=== PATIENT | male | born 1955 | race Caucasian/White ===

== ENCOUNTER 2017-04-30 08:06 | Emergency (ER) | payer OTHER ==
[~2017-04-30] VITALS: Ht 175.3 cm; Wt 84.2 kg
[~2017-04-30 08:06] MED LIST: FLX/5 PO
[2017-04-30 08:10] VITALS: TEMP 37.1; Ht 175.3 cm; Wt 84.2 kg
[2017-04-30] MEDS ORDERED: CIPROFLOXACIN HCL 0.3% OP SOLN 2.5 ML BTL OP ONE (08:45)
[2017-04-30] MEDS ORDERED: KETOROLAC TROMETHAMINE 60 MG/2 ML VIAL IM STA (09:15)
[2017-04-30] MEDS ORDERED: AMOXICILLIN 250 MG CAP PO STA (09:15)
[2017-04-30] MEDS ORDERED: HYDR-5688 PO (09:19)
[2017-04-30] MEDS ORDERED: AMOX500C3 PO (09:19)
--- NOTE | 2017-04-30 09:22 | EMERGENCY ROOM VISIT NOTE ---
ED Visit Note First contact with patient: 08:28 CHIEF COMPLAINT: Right ear pain times one day HISTORY OF PRESENT ILLNESS: Patient is a 62-year-old white male who presents the emergency department for evaluation of right ear pain. He states his symptoms started yesterday, but got much worse overnight. He notes pain in and around the right ear, states that he is unable to hear out of it. Pain is radiating towards his caodaism and to his jaw. It is worse when he talks. He denies any drainage or discharge from the area. He rates his pain a 7/10. He did not take any medication, nor perform any interventions for his ear pain. He reports an ear infection about a year ago. He has no symptoms in the left ear. He has not been ill with any cold or upper respiratory symptoms recently. REVIEW OF SYSTEMS: Review of systems as per HPI. All other systems reviewed were negative. At least 6 systems reviewed. PMH: Electronic medical records are reviewed and summarized as above/below. See Problem List. SOCIAL HISTORY: Patient lives at home. Smoker. PHYSICAL EXAM: Vital Signs: Reviewed Nurse's notes. MENTAL STATUS: Patient is a 62-year-old male who is awake and alert and weeping in pain , seated on the gurney. HEAD: Atraumatic, without temporal or scalp tenderness. EYES: PERRL, EOMI, no discharge or injection. EARS: Examination of the left ear so is the tympanic membranes to be intact, no effusion noted. Canal is patent. Examination of the right ear shows mild tragal fullness, and swelling of the external canal. Exam with a scope notes persistent swelling, and exudative discharge in the external canal. I am unable to fully visualize the tympanic membrane. He has tragal and auricular motion tenderness. The external ear structure otherwise is non-erythematous. There is no pain, swelling or erythema over the mastoid. NOSE: Nares patent, turbinates edematous and boggy with clear rhinorrhea. MOUTH: Mucous membranes moist, no lesions, tongue and gums appear normal. THROAT: No pharyngeal injection, exudates, or tonsillar hypertrophy. Airway is patent. NECK: No carotid bruits auscultated. Supple, nontender, no lymphadenopathy. No nuchal rigidity. HEART: Regular rate and rhythm without murmurs, ectopy, gallops, or rubs. LUNGS: Clear to auscultation and breath sounds equal, no wheezes, rales, or rhonchi. SKIN: Normal. NEUROLOGICAL: Sensory and motor functions grossly intact. Normal gait. ED course: The patient was seen and examined as above. He has marked swelling and erythema with drainage in the right external canal. It is difficult to exclude an otitis media as well. Ear wick was placed, and inflated using Cipro drops. The patient was given Toradol 60 mg IM for pain. He will be placed on amoxicillin for a presumed otitis media as well, but was advised to have the ear rechecked in 2-3 days by his PCP, at which point the ear wick can be removed , and hopefully the canal is less inflamed and the TM is able to fully visualized. He does not have any evidence for auricular cellulitis. I do not suspect mastoiditis. The patient was given a small prescription for [place]. Patient was reviewed in the [facility] Prescription Drug Monitoring Program, and there were no red flags noted. He receives regular controlled substances for his psychiatric conditions, has not received any narcotics recently. Medication reconciliation: I attest that I have personally reviewed the patient' s current medication list. Blood pressure screening: Patient was found to have a slightly elevated blood pressure due to circumstances. I do not believe that the patient requires hypertension monitoring. Problem List Medical Problems: (1) Anxiety Status: Chronic (2) Chest pain Status: Resolved (3) Esophageal Reflux Status: Chronic (4) Insomnia, Unspecified Status: Chronic (5) Neck pain Status: Resolved (6) Otitis media, purulent, acute, with spontaneous rupture of TM Status: Resolved (7) Restless Legs Syndrome Status: Chronic (8) Schizophrenia Nos-Unspec Status: Chronic (9) Syncope Status: Resolved Current/Historical Medications Scheduled Amoxicillin (Amoxil), 500 MG PO TID Scheduled PRN Hydrocodone/Acetaminophen 5MG/325MG ([place] 5MG/325MG), 1-2 TABLETS PO Q4 PRN for Pain Allergies Coded Allergies: No Known Allergies (Unverified , 04/30/17) Vital Signs Date Time Temp Pulse Resp B/P (MAP) Pulse Ox O2 Delivery O2 Flow Rate FiO2 04/30/17 09:59 70 20 158/103 96 04/30/17 09:28 102 163/110 98 04/30/17 08:10 37.1 104 20 164/109 97 Room Air Medications Administered Medications (Trade) Dose Ordered Sig/Artem Route Start Time Stop Time Status Last Admin Dose Admin Ciprofloxacin HCl (Ciprofloxacin 0.3% Op Soln) 2 drops Q4H ONCE OP 04/30/17 08:45 04/30/17 08:46 DC 04/30/17 08:45 2 DROPS Ketorolac Tromethamine (Toradol Inj) 60 mg NOW STAT IM 04/30/17 09:15 04/30/17 09:17 DC 04/30/17 09:26 60 MG Amoxicillin (Amoxil Cap) 500 mg NOW STAT PO 04/30/17 09:15 04/30/17 09:17 DC 04/30/17 09:24 500 MG Departure Information Impression Primary Impression: Right otitis externa Prescriptions Hydrocodone/Acetaminophen 5MG/325MG ([place] 5MG/325MG) Tab 1-2 TABLETS PO Q4 Y for Pain, #10 TAB For Initial Treatment Prov: Natalie Vera PA 04/30/17 Amoxicillin (AMOXIL) 500 Mg Cap 500 MG PO TID, #30 CAP Prov: Natalie Vera PA 04/30/17 Referrals Katrin Dickerson M.D. (PCP) Patient Instructions [facility] Additional Instructions Amoxicillin 500mg: Take 1 3 daily for 10 days. Any medication can cause an allergic reaction, stop the prescription immediately and return to the ER for rash, hives, breathing difficulties, or swelling. Ibuprofen(Motrin, Advil) may be used for fever or pain. Use 600mg every six hours as needed. Take with food. Avoid using more than 2400mg in a 24 hour period. Do not use 2400mg per day for more than three consecutive days without physician direction. Prolonged inappropriate use can lead to stomach upset or ulcers. (AND/OR) Acetaminophen(Tylenol) may be used for fever or pain. Use 1000mg every six hours as needed. Avoid using more than 3000mg in a 24 hour period. Hydrocodone/Acetaminophen ([place]) 5/325 mg: Take 1-2 pills every four hours for breakthrough pain. Avoid alcohol, operating machinery or dangerous equipment, working on ladders or roofs, DRIVING, or situations where being under the influence may be dangerous. It is recommended to use an [id number] stool softener such as Colace, 100mg twice daily while taking this medication to avoid constipation. Ciloxan drops: 4 drops in the right ear 3 times daily for 7 days. Read all the package inserts or medication information paperwork provided. If you have any questions or concerns call your primary provider, pharmacist or the ER for assistance. Encourage fluid intake. Rest is important, but light activity is o.k. Return with your child to the ER for lethargy, vomiting, difficulty breathing, abdominal pain, worsening of their condition, or for any parental concerns. Follow up with your primary care physician in 2-3 days for ear wick removal and for ear recheck.
[2017-04-30 09:59] VITALS: BP 158/103; PULSE 70; O2SAT 96
== END 2017-04-30 10:03 | disposition home or self-care (01) ==
LOC: C.EDB 08:07
DX: H60.91 Unspecified otitis externa, right ear (principal); F17.210 Nicotine dependence, cigarettes, uncomplicated; F41.9 Anxiety disorder, unspecified; K21.9 Gastro-esophageal reflux disease without esophagitis; G47.00 Insomnia, unspecified; G25.81 Restless legs syndrome; F20.9 Schizophrenia, unspecified

== ENCOUNTER 2017-05-02 11:27 | Emergency (ER) | payer OTHER ==
[~2017-05-02] VITALS: Ht 175.3 cm; Wt 83.6 kg
[~2017-05-02 11:27] MED LIST changes: +AMOX500C3 PO; -FLX/5 PO; +HYDR-5688 PO
[2017-05-02 11:31] VITALS: TEMP 37.2; Ht 175.3 cm; Wt 83.6 kg
[2017-05-02] MEDS ORDERED: HYDROCODONE/ACETAMOPHEN 5/325MG TAB PO STA (11:40)
--- NOTE | 2017-05-02 11:45 | EMERGENCY ROOM VISIT NOTE ---
History First contact with patient: 11:35 Chief Complaint: EAR PAIN Stated Complaint: EAR PAIN History of Present Illness The patient is a 62 year old male who presents to the Emergency Room via private vehicle with complaints of "right ear pain". The patient states that he was seen here just a few days ago and was diagnosed with otitis externa, and questionable otitis media although the canal was very inflamed. He had an ear wick placed, and has been using eardrops he was prescribed since that time. He' s also been using amoxicillin orally for any potential otitis media. He states that he was given 1 day of pain medication, and had been doing okay until this ran out and now he notes the pain is returned and it is very severe. He rates the pain as a 10/10, and notes pain all around the right ear, and behind the ear. He is unsure if there is any drainage that she notes ear wick is still within the ear. He denies any fevers or chills. Review of Systems A complete 6-point Review of Systems was discussed with the patient, with pertinent positives and negatives listed in the History of Present Illness. All remaining Review of Systems questions can be considered negative unless otherwise specified. Past Medical/Surgical History Medical Problems: (1) Anxiety (2) Chest pain (3) Esophageal Reflux (4) Insomnia, Unspecified (5) Neck pain (6) Otitis media, purulent, acute, with spontaneous rupture of TM (7) Restless Legs Syndrome (8) Schizophrenia Nos-Unspec (9) Syncope Family History FHx: heart disease Social History Smoking Status: Current Every Day Smoker Alcohol Use: none Drug Use: none Marital Status: single Housing Status: lives alone Occupation Status: retired Current/Historical Medications Scheduled Amoxicillin (Amoxil), 500 MG PO TID Amoxicillin & Pot Clavulanate (Augmentin 875-125 mg), 1 TAB PO BID Scheduled PRN Hydrocodone/Acetaminophen 5MG/325MG ([place] 5MG/325MG), 1-2 TABLETS PO Q4 PRN for Pain Hydrocodone/Acetaminophen 5MG/325MG ([place] 5MG/325MG), 1-2 TABLET PO Q6 PRN for Pain Physical Exam Vital Signs Date Time Temp Pulse Resp B/P (MAP) Pulse Ox O2 Delivery O2 Flow Rate FiO2 05/02/17 13:50 74 20 150/90 98 Room Air 05/02/17 11:52 88 20 156/105 98 Room Air 05/02/17 11:31 37.2 106 20 155/100 97 Room Air Physical Exam VITAL SIGNS - Vital signs and nursing notes were reviewed. Stable. GENERAL -62-year-old male appearing his stated age who is in no acute distress but is sobbing and crying while sitting upright on the exam table. Communicates well with provider and answers questions appropriately. SKIN - Without rashes. No particular meningeal rash. HEAD - NC/AT. EYES - PERRL with EOMI bilaterally. Sclera anicteric. Palpebral conjunctiva pink and moist with no injection noted. EARS - No deformities of external structures noted on gross examination bilaterally. Left ear slightly erythematous at the TM, otherwise unremarkable. Right ear does elicit slightly inflamed TM as well as ear canal. No evidence of perforation or rupture. No evidence of mastoiditis. NOSE - Midline and without cyanosis. No epistaxis or purulent drainage noted. Septum midline without deviation or septal hematoma noted. MOUTH/OROPHARYNX - Without perioral cyanosis. Buccal mucosa pink and moist and without leukoplakia. Tongue midline with equal elevation of palate bilaterally. No tonsillar hypertrophy, erythema, or exudates noted. Fair dentition noted. NECK - Neck with FROM. Supple to palpation. No anterior cervical lymphadenopathy noted. No nuchal rigidity. Medical Decision & Procedures ER Provider Diagnostic Interpretation: TEMPORAL BONE CT HISTORY: Right ear pain into mastoid. Otitis external and media TECHNIQUE: Multiaxial CT images of the temporal bones were performed and reformatted in the coronal plane without the use of contrast. COMPARISON STUDY: Head CT 07/06/2014. FINDINGS: On the right: There are few partially opacified right inferior mastoid air cells. However, greater than 90 % of the mastoid air cells are clear. Mild thickening of the right tympanic membrane. 2 mm punctate density within the right external auditory canal. The ossicles are intact. No erosive changes identified. Trace soft tissue/fluid at the Prussak's space. However, the scutum appears intact. No evidence for inner ear dysplasia. The 7th cranial nerve describes a normal course. On the left: The external auditory canal and middle ear cavity are patent. The ossicles are intact. No evidence for inner ear dysplasia. The mastoid air cells are clear. The 7th cranial nerve describes a normal course. IMPRESSION: 1. A few partially opacified right inferior mastoid air cells. However, greater than 90% of the mastoid air cells are clear. 2. Mild thickening of the right tympanic membrane. 3. A 2 mm punctate density within the right external auditory canal. This could represent a tiny skin tag. 4. Trace soft tissue/fluid at Prussak's space on the right. However, there are no erosive changes and the scutum appears intact. This favors a trace amount of inflammatory change given the lack of erosions. A small cholesteatoma code have a similar appearance but is considered less likely.. 5. Normal left temporal bone. Electronically signed by: Umesh Jaquez M.D. 05/02/2017 1:10 PM Dictated Date/Time: 05/02/2017 12:59 PM Medications Administered Medications (Trade) Dose Ordered Sig/Artem Route Start Time Stop Time Status Last Admin Dose Admin Acetaminophen/ Hydrocodone Bitart ([place] 5/325 Tab) 1 tab NOW STAT PO 05/02/17 11:40 05/02/17 11:44 DC 05/02/17 11:40 1 TAB Medical Decision patient was seen and evaluated as above. Previous visits were extensively reviewed. He presents to us today with right ear pain. Upon my entrance into the exam room the patient is tearful, and appears to be writhing in pain. This appears to be consistent with his previous visit. The ear wick was removed, and the external canal. The much less edematous and the TM was easily visualized, which appears to be a great improvement compared to previous visit. He was given one [place] for his pain. Case was discussed with the attending physician who recommended CT scan of the mastoids. Results as above. There is 10% opacification. I discussed this result with the on-call ENT surgeon, Dr. Byrne. I informed her of the patient's clinical picture appears to be improving in relation to previously described her pain. At this time he recommends outpatient management. I do with this is reasonable. I will swab the patient from amoxicillin, to Augmentin. He is to discontinue the amoxicillin. The eardrops may continue. He is also to use the [place] for pain. He was educated strictly upon its use. He was offered prednisone, but declined. He was educated upon management, was felt stable for outpatient mention, educated upon worrisome symptoms in which to return, had questions answered prior to discharge, and was discharged home in good condition. In evaluation and treatment of this patient the following differential diagnoses radiographs: Otitis media, otitis externa, mastoiditis, meningitis, encephalitis, among others. I personally have reviewed the patient's medication list. The patient was found hypertensive, and I believe secondary to situational do not believe that hypertensive or cardiac monitoring is warranted at this time. He is to follow with his family doctor. In the treatment of this patient controlled medication was utilized and therefore the [facility], Prescription Drug Monitoring Program website was utilized to look up this patient. No concerns were identified that would prohibit or alter my treatment decision. Impression Primary Impression: Otitis media, acute Departure Information Dispostion Home / Self-Care Condition GOOD Prescriptions Hydrocodone/Acetaminophen 5MG/325MG ([place] 5MG/325MG) Tab 1-2 TABLET PO Q6 Y for Pain, #20 TAB For Initial Treatment Prov: Yossi Can PA-C 05/02/17 Amoxicillin & Pot Clavulanate (Augmentin 875-125 mg) 1 Tab Tab 1 TAB PO BID for 10 Days, #20 TAB Prov: Yossi Can PA-C 05/02/17 Referrals No Doctor, Assigned (PCP) Dustin Rogers M.D. Patient Instructions [facility] Additional Instructions You have been treated in the Emergency Department for an Inner Ear Infection ( Otitis Media). You have received pain medicine in the emergency department which impairs your ability to operate a vehicle. It is illegal for you to drive after receiving these medicines. You were prescribed Augmentin to be taken every 12 hours for 10 days. This is an antibiotic. All antibiotics have the potential to cause diarrhea. Stop this medication and contact a medical provider if you were to develop any significant adverse side effects including: wheezing, shortness of breath, passing out, vomiting, or a diffuse rash. Always take antibiotics as directed and COMPLETE the ENTIRE course regardless of the improvement of your symptoms. Please stop the amoxicillin and begin the Augmentin. You may continue the eardrops as prescribed. [place] for pain. No driving or operating machinery with this. Do not take this with Tylenol as early contains it. For pain and fever control, you can use the following [id number]-[id number] medicines : - Regular strength (325mg/tab) Tylenol (acetaminophen) 2 tabs every 4-6 hours as needed. Do not exceed 12 tablets in a 24 hour period. Avoid taking more than 3 grams (3000 mg) of Tylenol per day. This includes any other sources of acetaminophen you may take on a regular basis. - Regular strength (200 mg/tab) Advil (ibuprofen) 1-2 tabs every 4-6 hours as needed. Do not exceed a dose of [address] Rogers would like to see you tomorrow, May 03 at 2:30 PM. If you're unable to keep this appointment please call immediately. Return to the emergency department if you develop the following symptoms despite treatment course outlined above: headache, fever, intractable pain, increased redness, swelling, or purulent discharge. Please return with any new/concerning symptoms.
--- NOTE | 2017-05-02 13:11 | DIAGNOSTIC IMAGING REPORT ---
TEMPORAL BONE CT HISTORY: Right ear pain into mastoid. Otitis external and media TECHNIQUE: Multiaxial CT images of the temporal bones were performed and reformatted in the coronal plane without the use of contrast. COMPARISON STUDY: Head CT 07/06/2014. FINDINGS: On the right: There are few partially opacified right inferior mastoid air cells. However, greater than 90 % of the mastoid air cells are clear. Mild thickening of the right tympanic membrane. 2 mm punctate density within the right external auditory canal. The ossicles are intact. No erosive changes identified. Trace soft tissue/fluid at the Prussak's space. However, the scutum appears intact. No evidence for inner ear dysplasia. The 7th cranial nerve describes a normal course. On the left: The external auditory canal and middle ear cavity are patent. The ossicles are intact. No evidence for inner ear dysplasia. The mastoid air cells are clear. The 7th cranial nerve describes a normal course. IMPRESSION: 1. A few partially opacified right inferior mastoid air cells. However, greater than 90% of the mastoid air cells are clear. 2. Mild thickening of the right tympanic membrane. 3. A 2 mm punctate density within the right external auditory canal. This could represent a tiny skin tag. 4. Trace soft tissue/fluid at Prussak's space on the right. However, there are no erosive changes and the scutum appears intact. This favors a trace amount of inflammatory change given the lack of erosions. A small cholesteatoma code have a similar appearance but is considered less likely.. 5. Normal left temporal bone. Electronically signed by: Umesh Jaquez M.D. 05/02/2017 1:10 PM Dictated Date/Time: 05/02/2017 12:59 PM
--- NOTE | 2017-05-02 13:27 | EMERGENCY ROOM VISIT NOTE ---
ED Visit Note First contact with patient: 11:35 Patient was seen by our PA/FUNERAL LOCATION MANAGER. I was involved in the patient's care and did evaluate the patient myself. I was involved in the care throughout the ER stay. The patient returns for a recheck of his otitis externa. He was still having quite a bit of pain but the infection appeared to be improving. He was afebrile. He is on oral antibiotics as well as antibiotic drops. A CT was done and there may be some minimal mastoiditis present. ENT is being consulted.
[2017-05-02 13:50] VITALS: BP 150/90; PULSE 74; O2SAT 98
[2017-05-02] MEDS ORDERED: AMOX875T PO (14:12)
[2017-05-02] MEDS ORDERED: HYDR-5688 PO (14:12)
== END 2017-05-02 14:28 | disposition home or self-care (01) ==
LOC: C.EDB 11:29 → C.EDD 14:28
DX: H66.90 Otitis media, unspecified, unspecified ear (principal); K21.9 Gastro-esophageal reflux disease without esophagitis; F41.9 Anxiety disorder, unspecified; F20.9 Schizophrenia, unspecified; G25.81 Restless legs syndrome; F17.200 Nicotine dependence, unspecified, uncomplicated; Z82.49 Family history of ischemic heart disease and other diseases of the circulatory system

== ENCOUNTER 2017-11-14 08:39 | Emergency (ER) | payer OTHER ==
[~2017-11-14] VITALS: Ht 175.3 cm; Wt 88.8 kg
[2017-11-14 08:45] VITALS: TEMP 36.8; Ht 175.3 cm; Wt 88.8 kg
[2017-11-14] MEDS ORDERED: IBUPROFEN 600 MG TAB PO STA (09:02)
--- NOTE | 2017-11-14 09:32 | DIAGNOSTIC IMAGING REPORT ---
RIGHT FOOT 3 VIEWS HISTORY: Right foot pain. RIGHT FOOT, EVAL FX COMPARISON: None. FINDINGS: There is no fracture or dislocation. Soft tissues are unremarkable. Plantar heel spur. Calcifications at the distal insertion of the Achilles tendon. 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 IMPRESSION: No fractures. Electronically signed by: Umesh Jaquez M.D. 11/14/2017 9:31 AM Dictated Date/Time: 11/14/2017 9:26 AM
--- NOTE | 2017-11-14 09:59 | EMERGENCY ROOM VISIT NOTE ---
ED Visit Note First contact with patient: 08:50 CHIEF COMPLAINT: Left foot injury this morning Patient is a 62-year-old male who presents emergency department for evaluation of left foot pain after he dropped a grill propane tank on his left foot this morning. He was wearing a sandal at the time of the injury. He complains of pain in the fourth and the fifth metatarsal region. He is able to bear weight but it is painful. He describes a sharp pain with weightbearing and a constant throbbing pain that he rates a 10/10. He did not take any medications for discomfort prior to coming to the emergency department. REVIEW OF SYSTEMS: Review of systems as per HPI. All other systems reviewed were negative. At least 6 systems reviewed. PMH: Electronic medical records are reviewed and summarized as above/below. See Problem List. SOCIAL HISTORY: Patient lives at home. Smoker. PHYSICAL EXAM: Vital Signs: Reviewed Nurse's notes. GENERAL: Patient is a tearful otherwise well-appearing 52-year-old male who is awake and alert and in moderate distress due to his stated complaint. MUSCULOSKELETAL: Examination of the left foot notes no significant soft tissue swelling, he has ecchymosis noted over the dorsum of the foot, primarily over the distal fourth and fifth metatarsals, and involving the fifth toe. The area is tender to palpation. No obvious fracture crepitus. Skin is intact. EMERGENCY DEPARTMENT COURSE: X-rays of the right foot were obtained and were negative for acute fracture. She was placed in a postoperative shoe. He was medicated with ibuprofen in the emergency department. Conservative care measures were discussed. Differential diagnoses included fracture, contusion, sprain, among others. Medication reconciliation: I attest that I have personally reviewed the patient' s current medication list. Blood pressure screening: Patient was found to have a slightly elevated blood pressure due to circumstances. I do not believe that the patient requires hypertension monitoring. RIGHT FOOT 3 VIEWS HISTORY: Right foot pain. RIGHT FOOT, EVAL FX COMPARISON: None. FINDINGS: There is no fracture or dislocation. Soft tissues are unremarkable. Plantar heel spur. Calcifications at the distal insertion of the Achilles tendon. 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 IMPRESSION: No fractures. Problem List Medical Problems: (1) Anxiety Status: Chronic (2) Chest pain Status: Resolved (3) Esophageal Reflux Status: Chronic (4) Insomnia, Unspecified Status: Chronic (5) Neck pain Status: Resolved (6) Otitis media, acute Status: Resolved (7) Otitis media, purulent, acute, with spontaneous rupture of TM Status: Resolved (8) Restless Legs Syndrome Status: Chronic (9) Right otitis externa Status: Resolved (10) Schizophrenia Nos-Unspec Status: Chronic (11) Syncope Status: Resolved Current/Historical Medications No Active Prescriptions or Reported Meds Allergies Coded Allergies: No Known Allergies (Unverified , 11/14/17) Vital Signs Date Time Temp Pulse Resp B/P (MAP) Pulse Ox O2 Delivery O2 Flow Rate FiO2 11/14/17 10:18 78 16 146/103 96 11/14/17 09:21 91 22 125/99 99 11/14/17 08:45 36.8 92 18 173/117 98 Room Air Medications Administered Medications (Trade) Dose Ordered Sig/Artem Route Start Time Stop Time Status Last Admin Dose Admin Ibuprofen (Motrin Tab) 600 mg NOW STAT PO 11/14/17 09:02 11/14/17 09:04 DC 11/14/17 09:09 600 MG Departure Information Impression Primary Impression: Contusion of foot Prescriptions No Active Prescriptions or Reported Meds Referrals Katrin Dickerson M.D. (PCP) Patient Instructions My [facility] Additional Instructions Ibuprofen(Motrin, Advil) may be used for fever or pain. Use 600mg every six hours as needed. Take with food. Avoid using more than 2400mg in a 24 hour period. Do not use 2400mg per day for more than three consecutive days without physician direction. Prolonged inappropriate use can lead to stomach upset or ulcers. This medication can be taken if you need to drive, work, or perform activities which may be dangerous when taking narcotic pain medication. (AND/OR) Acetaminophen(Tylenol) may be used for fever or pain. Use 1000mg every six hours as needed. Avoid using more than 3000mg in a 24 hour period. This medication can be taken if you need to drive, work, or perform activities which may be dangerous when taking narcotic pain medication. Ice compresses for 20 minutes at a time four times daily for 2-3 days. Use the post operative shoe as instructed. Rest and elevate your injury. Continue current medications. Return to the ER immediately for any numbness, tingling, severe pain, extreme swelling in the extremity or as needed. Follow up with your family physician next week if symptoms are not improving. Problem Qualifiers Primary Impression: Contusion of foot Encounter type: initial encounter Laterality: right Qualified Codes: S90.31XA - Contusion of right foot, initial encounter
[2017-11-14 10:18] VITALS: BP 146/103; PULSE 78; O2SAT 96
== END 2017-11-14 10:18 | disposition home or self-care (01) ==
LOC: C.EDB 08:41
DX: S90.31XA Contusion of right foot, initial encounter (principal); W20.8XXA Other cause of strike by thrown, projected or falling object, initial encounter; F17.210 Nicotine dependence, cigarettes, uncomplicated; F41.9 Anxiety disorder, unspecified; K21.9 Gastro-esophageal reflux disease without esophagitis; G25.81 Restless legs syndrome; F20.9 Schizophrenia, unspecified

== ENCOUNTER → 2017-11-30 | Outpatient (CLI) | payer OTHER | END | disposition home or self-care (01) | LOC: C.CPL 14:11 | DX: M75.82 Other shoulder lesions, left shoulder (principal) ==

== ENCOUNTER 2018-02-23 21:39 | Emergency (ER) | payer OTHER ==
[~2018-02-23] VITALS: Ht 175.3 cm; Wt 88.8 kg
[2018-02-23 21:47] VITALS: TEMP 37.1; Ht 175.3 cm; Wt 88.8 kg
[2018-02-23] MEDS ORDERED: MoRPHine SULFATE 10 MG/ML CARP/VIAL IV STA (22:13)
[2018-02-23] MEDS ORDERED: ONDANSETRON INJ 2 MG/ML 2 ML VIAL IV STA (22:13)
[2018-02-23] MEDS ORDERED: CEFTRIAXONE SOD INJ 1 GM ADDVIAL IV STA (22:13)
[2018-02-23] MEDS ORDERED: SODIUM CHLORIDE 0.9% 1000ML 1,000 ML IV ONE (22:15)
[2018-02-23] MEDS ORDERED: LIDOCAINE 1% BUFFERED INJ 20 ML VIAL ONE (22:27)
[2018-02-23 22:40] LABS: BASO % 0.3 %; BASO ABS # 0.03 K/uL (0-0.2); EOS % 1.6 %; EOS ABS # 0.18 K/uL (0-0.5); HEMATOCRIT 42.5 % (42-52); HEMOGLOBIN 14.9 g/dL (14.0-18.0); IG# 0.06 K/uL (0.00-0.02); LYMPH % 22.8 %; LYMPH ABS # 2.58 K/uL (1.2-3.4); MEAN CORPUSCULAR HEMOGLOBIN 29.8 pg (25-34); MEAN CORPUSCULAR HGB CONC 35.1 g/dl (32-36); MEAN PLATELET VOLUME 9.5 fL (7.4-10.4); MONO % 10.9 %; MONO ABS # 1.24 K/uL (0.11-0.59); NEUT % 63.9 %; NEUT ABS # 7.25 K/uL (1.4-6.5); PLATELET COUNT 317 K/uL (130-400); RED CELL DISTRIBUTION WIDTH CV 14.1 % (11.5-14.5); RED CELL DISTRIBUTION WIDTH SD 43.9 fL (36.4-46.3); WHITE BLOOD COUNT 11.34 K/uL (4.8-10.8)
[2018-02-23 23:00] LABS: CALCIUM 8.6 mg/dl (8.5-10.1); CREATININE 1.05 mg/dl (0.60-1.40); POTASSIUM 3.9 mmol/L (3.5-5.1)
[2018-02-23] MEDS ORDERED: MoRPHine SULFATE 4 MG/ML 1 ML CARP\\VIAL IV STA (23:14)
[2018-02-23] MEDS ORDERED: SEPTRA DS HOME PACK 1 EA VIAL PO ONE (23:15)
[2018-02-23] MEDS ORDERED: CEPHALEXIN 500MG HOME PACK 1 EA BTL PO ONE (23:15)
[2018-02-23] MEDS ORDERED: OXYCODONE IR HOME PACK PO ONE (23:15)
[2018-02-23] MEDS ORDERED: SULF800T23 PO (23:20)
[2018-02-23] MEDS ORDERED: CEPH500C2 PO (23:20)
[2018-02-23] MEDS ORDERED: OXYC-737 PO (23:20)
[2018-02-23 23:51] VITALS: BP 140/78; PULSE 98; O2SAT 96
--- NOTE | 2018-02-24 01:27 | EMERGENCY ROOM VISIT NOTE ---
ED Visit Note First contact with patient: 22:07 CHIEF COMPLAINT: I have a bump on the back of my right leg. HISTORY OF PRESENT ILLNESS: Mr. Gifford is an 63-year-old male who ambulates into the ED complaining of a lesion over the posterior aspect of the proximal leg. Patient reports approximately 3 days ago he started noting swelling and pain over the medial aspect of the right gluteal crease between the thigh and the buttocks. He reports initially the swelling and the pain was mild but has increased in intensity and size over the last 3 days. Currently patient is complaining of a severe pain in the area of his swelling in the gluteal crease. He has difficulty describing his discomfort. He does rate his discomfort 10/10. His pain is nonradiating. His pain worsens with palpation, sitting on his buttocks and ambulation. He has not identified any alleviating factors related to the pain. He has not taken any medications for pain prior to arrival at the hospital. Associated with his pain he reports last night he had difficulty sleeping because of his pain. He denies fevers, chills, sweats, skin eruptions, skin color changes, recent trauma to the area, upper respiratory tract symptoms, shortness of breath, abdominal pain, nausea, vomiting, decreased appetite, diarrhea, rectal bleeding , painful bowel movements, back/flank pain, urinary symptoms, genital paresthesias, lower extremity weakness/numbness/tingling. REVIEW OF SYSTEMS: As noted above in History of Present Illness; all body systems are reviewed with the patient and found to be negative unless noted above otherwise. PAST MEDICAL HISTORY: Patient denies. CURRENT MEDICATION: Patient denies. ALLERGIES TO MEDICATION: Patient denies. SOCIAL HISTORY: Patient is not employed, she he reports he is on disability; patient feels safe in his home environment; patient admits to tobacco use and denies alcohol use. PHYSICAL EXAM: Vital Signs: Date Time Temp Pulse Resp B/P (MAP) Pulse Ox O2 Delivery O2 Flow Rate FiO2 02/23/18 23:51 98 18 140/78 96 02/23/18 21:47 37.1 112 18 137/82 96 Room Air General: 63 year-old male in moderate distress due to pain, nontoxic appearing, afebrile and hemodynamically stable. Neurological: Awake, alert and oriented to person, place and time. Answering questions appropriately and following commands. Skin: Warm, dry and pink. Right Posterior Thigh: Over the gluteal crease patient has an indurated area which measures about 4 cm in diameter. This area is fluctuant without pointing. In the middle of this area there is a small opening of the skin with a small amount of purulent drainage. There is a zone of inflammation around it but no lymphangitis. Thorax: Lungs sounds are clear to auscultation and equal bilaterally with symmetrical chest wall movement. No wheezing, rales or rhonchi. No increased respiratory effort. Abdomen: Flat, soft and nontender. Positive bowel sounds in all quadrants. No guarding or rigidity. ED COURSE: Patient is assessed as noted above. Patient's medication list was reviewed. Laboratory Testing: Test 02/23/18 22:25 Range/Units White Blood Count 11.34 4.8-10.8 K/uL Red Blood Count 5.00 4.7-6.1 M/uL Hemoglobin 14.9 14.0-18.0 g/dL Hematocrit 42.5 42-52 % Mean Corpuscular Volume 85.0 80-100 fL Mean Corpuscular Hemoglobin 29.8 25-34 pg Mean Corpuscular Hemoglobin Concent 35.1 32-36 g/dl Platelet Count 317 130-400 K/uL Mean Platelet Volume 9.5 7.4-10.4 fL Neutrophils (%) (Auto) 63.9 % Lymphocytes (%) (Auto) 22.8 % Monocytes (%) (Auto) 10.9 % Eosinophils (%) (Auto) 1.6 % Basophils (%) (Auto) 0.3 % Neutrophils # (Auto) 7.25 1.4-6.5 K/uL Lymphocytes # (Auto) 2.58 1.2-3.4 K/uL Monocytes # (Auto) 1.24 0.11-0.59 K/uL Eosinophils # (Auto) 0.18 0-0.5 K/uL Basophils # (Auto) 0.03 0-0.2 K/uL RDW Standard Deviation 43.9 36.4-46.3 fL RDW Coefficient of Variation 14.1 11.5-14.5 % Immature Granulocyte % (Auto) 0.5 % Immature Granulocyte # (Auto) 0.06 0.00-0.02 K/uL Sodium Level 136 136-145 mmol/L Potassium Level 3.9 3.5-5.1 mmol/L Chloride Level 106 98-107 mmol/L Carbon Dioxide Level 24 21-32 mmol/L Anion Gap 7.0 3-11 mmol/L Blood Urea Nitrogen 15 7-18 mg/dl Creatinine 1.05 0.60-1.40 mg/dl Est Creatinine Clear Calc Drug Dose 77.3 ml/min Estimated GFR () 85.9 Estimated GFR (Non- 74.1 BUN/Creatinine Ratio 14.2 10-20 Random Glucose 150 70-99 mg/dl Calcium Level 8.6 8.5-10.1 mg/dl Wound Gram Stain and Culture: Pending. Incision and Drainage: Verbal consent was obtained after the risks and benefits were explained. The skin was prepped with betadine and a sterile field set. The area surrounding the abscess was anesthetized with 6.5 ml of 1% buffered lidocaine. The abscess cavity was incised with a scalpel. Approximately 3 mL of purulent material was drained from the abscess and more was expressed. Aerobic cultures were obtained and are currently pending. The abscess cavity was sharply dissected with iris scissors to break up loculations and a small amount of additional purulent drainage was expressed. Copious irrigation was performed using sterile saline. The abscess cavity was cleaned out with a cotton tip applicator dipped in Betadine. Hemostasis was achieved. Iodoform gauze packing was inserted into the abscess. A sterile dressing was applied. No complications and the patient tolerated the procedure well. Patient was hydrated with normal saline and received a total of 10 mg of morphine IV for pain, 4 mg of Zofran IV and 1 g of Rocephin IV for antibiotic coverage. Patient was educated about his condition and instructed on his treatment plan; he verbalized understanding and agreement with this plan. CLINICAL IMPRESSION: Abscess of the posterior right leg. DISPOSITION: Patient discharged to home in stable condition accompanied by his brother; prior to departure he was reassessed and subjectively reported he was feeling better and rated his discomfort 7/10. PLAN: Patient was prescribed Keflex 500 mg 4 times a day and Bactrim DS 2 times a day for total of 10 days for antibiotic coverage. Patient was placed on a sliding pain medication scale of ibuprofen, acetaminophen and OxyIR; his name was checked on state database and no red flags were noted and he was given appropriate narcotic precautions. Patient was encouraged to keep his bandage dry and intact. Patient was encouraged to follow-up with his PCP or return to the ED in 36-48 hours for recheck. Patient was encouraged return the ED for worsening/uncontrolled pain, fevers, increasing signs of infection or any new/concerning symptoms.
== END 2018-02-23 23:54 | disposition home or self-care (01) ==
LOC: C.EDB 21:40 → C.EDD 23:54
DX: L02.415 Cutaneous abscess of right lower limb (principal)

== ENCOUNTER 2018-02-25 22:15 | Emergency (ER) | payer OTHER ==
[~2018-02-25] VITALS: Ht 175.3 cm; Wt 88.0 kg
[~2018-02-25 22:15] MED LIST changes: -AMOX500C3 PO; +CEPH500C2 PO; -HYDR-5688 PO; +OXYC-737 PO; +SULF800T23 PO
[2018-02-25 22:21] VITALS: TEMP 36.9; Ht 175.3 cm; Wt 88.0 kg
[2018-02-25] MEDS ORDERED: OXYCODONE IR HOME PACK PO ONE (22:45)
[2018-02-25 23:12] VITALS: BP 126/85; PULSE 98; O2SAT 95
--- NOTE | 2018-02-26 05:04 | EMERGENCY ROOM VISIT NOTE ---
History First contact with patient: 22:32 Chief Complaint: WOUND RECHECK Stated Complaint: RETURN AFTER ABSCESS Nursing Triage Summary: posterior R thigh wound. packing removed. no drainage noted. wound open to air per PA. History of Present Illness The patient is a 63 year old male who presents to the Emergency Room for recheck of a right thigh abscess. The patient infection was incised and drained 2 days ago. The patient has not removed the dressing or the packing. He is currently on Bactrim and Keflex and is tolerating the medication well. He does have some mild pain in the area, but does not report fever or worsening symptoms. He rates his current discomfort a 4/10. Review of Systems More than 10 systems were reviewed and otherwise negative with the exception of history of present illness. Past Medical/Surgical History Medical Problems: (1) Anxiety (2) Chest pain (3) Esophageal Reflux (4) Insomnia, Unspecified (5) Neck pain (6) Otitis media, acute (7) Otitis media, purulent, acute, with spontaneous rupture of TM (8) Restless Legs Syndrome (9) Right otitis externa (10) Schizophrenia Nos-Unspec (11) Syncope Family History FHx: heart disease Social History Smoking Status: Current Every Day Smoker Alcohol Use: none Drug Use: none Marital Status: single Housing Status: lives alone Occupation Status: retired Current/Historical Medications Scheduled Cephalexin Monohydrate (Keflex), 500 MG PO QID Sulfa/Trimethoprim (Bactrim Ds 800MG/160MG), 1 TAB PO BID Scheduled PRN Oxycodone Immediate Rel Tab (Roxicodone Ir), 1-2 TAB PO Q6 PRN for Severe Pain Physical Exam Vital Signs Date Time Temp Pulse Resp B/P (MAP) Pulse Ox O2 Delivery O2 Flow Rate FiO2 02/25/18 23:12 98 18 126/85 95 02/25/18 22:21 36.9 112 18 121/85 93 Room Air Physical Exam VITALS: Vitals are noted on the nurse's note and reviewed by myself. Vital signs stable. GENERAL: Well-developed, well-nourished, white male, who is in no acute distress and resting comfortably. Patient is cooperative with the examination. HEAD: Normocephalic atraumatic. HEART: Regular rate and rhythm without murmurs gallops or rubs. LUNGS: Clear to auscultation bilaterally without wheezes, rales or rhonchi. No retractions or accessory muscle use. SKIN: The skin was with a well-healing abscess with packing in place. There is no significant cellulitis or persistent drainage/discharge. The packing was removed without difficulty, and the wound was massaged without blood or purulence. No other infection is noted. Medical Decision & Procedures Medications Administered Medications (Trade) Dose Ordered Sig/Artem Route Start Time Stop Time Status Last Admin Dose Admin Oxycodone HCl (Roxicodone Immediate Rel 5MG Home Pack) 1 homepack UD ONCE PO 02/25/18 22:45 02/25/18 22:46 DC 02/25/18 23:09 1 HOMEPACK ED Course Physical exam and history were performed. Nursing notes, EMR, and Medication List were personally reviewed. Patient appears to have a well-healing incision and drainage wound to his right posterior leg. There is no persistent infection that I am able to appreciate at this time. There certainly is no fluctuance, and he appears to be healing well. The patient is complaining of persistent pain and will give him a home pack of OxyIR. He is to continue his antibiotics as prescribed and follow with his primary care physician for further care and management. The chart was completed utilizing [employer] Voice Recognition Software. Grammatical errors, random word insertions, pronoun errors, and incomplete sentences are an occasional consequence of this system due to software limitations, ambient noise, and hardware issues. Any formal questions or concerns about the content, text, or information contained within the body of this dictation should be directly addressed to the provider for clarification. . Medical Decision Differential diagnosis: Etiologies such as cellulitis, abscess, MRSA infection, DVT, necrotizing fasciitis, dermatitis, drug eruption, as well as others were entertained.. Impression Primary Impression: Encounter for wound re-check Departure Information Dispostion Home / Self-Care Condition GOOD Referrals Katrin Dickerson M.D. (PCP) Forms HOME CARE DOCUMENTATION FORM, IMPORTANT VISIT INFORMATION Patient Instructions My [facility] Additional Instructions You were seen and evaluated today on an emergency basis only. This is not a substitute for, or an effort to provide, complete comprehensive medical care. It is not possible to recognize and treat all injuries or illnesses in a single emergency department visit. For this reason it is recommended that you followup with your primary care physician in the next week for recheck of your condition. Continue your antibiotics as previously prescribed. You are welcome to return to the emergency department anytime with new, worsening, or concerning symptoms.
== END 2018-02-25 23:14 | disposition home or self-care (01) ==
LOC: C.EDB 22:17 → C.EDC 23:14
DX: Z09 Encounter for follow-up examination after completed treatment for conditions other than malignant neoplasm (principal); L02.415 Cutaneous abscess of right lower limb; F41.9 Anxiety disorder, unspecified; K21.9 Gastro-esophageal reflux disease without esophagitis; G25.81 Restless legs syndrome; F20.9 Schizophrenia, unspecified; F17.210 Nicotine dependence, cigarettes, uncomplicated

== ENCOUNTER 2018-10-28 11:17 | Inpatient (IN) ==
[2018-10-28] MEDS ORDERED: ONDANSETRON INJ 2 MG/ML 2 ML VIAL IV STA (11:29)
[2018-10-28] MEDS ORDERED: MoRPHine SULFATE 4 MG/ML 1 ML CARP\\VIAL IV STA ×2 (11:29→13:36)
[2018-10-28] MEDS ORDERED: SODIUM CHLORIDE 0.9% 1000ML 1,000 ML IV ONE (11:29)
[2018-10-28 12:00] LABS: Appearance Urine Clear (Clear); Bilirubin Urine Negative (Negative); Blood Urine Negative (Negative); Color Urine Yellow; Glucose Urine UA Negative (Negative); Ketones Urine Trace (Negative); Leukocyte Esterase Urine Negative (Negative); Nitrite Urine Negative (Negative); Protein Urine Negative (Negative); Specific Gravity Urine 1.026 (1.000-1.030); Urobilinogen Urine Negative (Negative)
[2018-10-28 12:05] LABS: Basophils # (auto) 0.01 K/uL (0-0.2); Basophils % (auto) 0.1 %; Eosinophils # (auto) 0.07 K/uL (0-0.5); Eosinophils % (auto) 0.5 %; Hematocrit (blood only) 44.1 % (42-52); Hemoglobin 15.5 g/dL (14.0-18.0); Immature Granulocytes # (auto) 0.05 K/uL (0.00-0.02); Immature Granulocytes % (auto) 0.4 %; Lymphocytes # (auto) 1.56 K/uL (1.2-3.4); Lymphocytes % (auto) 12.1 %; Mean Corpuscular Hgb Conc 35.1 g/dL (32-36); Mean Corpuscular Volume 84.5 fL (80-100); Mean Platelet Volume 9.5 fL (7.4-10.4); Monocytes # (auto) 1.19 K/uL (0.11-0.59); Monocytes % (auto) 9.2 %; Neutrophils # (auto) 10.03 K/uL (1.4-6.5); Neutrophils % (auto) 77.7 %; Platelet Count 309 K/uL (130-400); RDW Coefficient of Variation 14.7 % (11.5-14.5); RDW Standard Deviation 45.8 fL (36.4-46.3); Red Blood Count 5.22 M/uL (4.7-6.1); White Blood Count 12.91 K/uL (4.8-10.8)
[2018-10-28 12:19] LABS: Albumin Level 3.6 gm/dl (3.4-5.0); BUN Creatinine Ratio 18.1 (10-20); Calcium 8.8 mg/dl (8.5-10.1); Creatinine Clr Calc Pharmacy 118.1 ml/min; Est GFR (African American) 115.5; Est GFR (Non-African American) 99.6; Potassium 3.9 mmol/L (3.5-5.1)
[2018-10-28 12:20] LABS: Prothrombin Time 10.6 Seconds (9.0-12.0)
[2018-10-28 12:22] LABS: Bilirubin,Total 0.5 mg/dl (0.2-1); Globulin 3.6 gm/dl (2.5-4.0); Total Protein 7.2 gm/dl (6.4-8.2)
[2018-10-28] MEDS ORDERED: IOVERSOL 100ml IV PRN (12:42)
--- NOTE | 2018-10-28 12:59 | CT Scan Report ---
ABDOMEN AND PELVIS CT WITH IV CONTRAST CT DOSE: 488.16 mGy.cm HISTORY: Acute generalized abdominal pain diffuse abd pain TECHNIQUE: Multiaxial CT images of the abdomen and pelvis were performed following the use of intrave nous contrast. A dose lowering technique was utilized adhering to the principles of ALARA. COMPARISON STUDY: CTA of the chest 07/06/2014. FINDINGS: Mild dependent subsegmental bibasilar atelectasis. No pneumatosis or pneumoperitoneum. Imaged inferio r cardiac chambers are unremarkable. Gallbladder, spleen, pancreas and adrenal glands are unremarkable. There are 2 subadjacent hypodense lesions noted about the left hepatic lobe, conglomerate measuring up to 1.7 cm which are indeterminat e and statistically benign. Liver is otherwise unremarkable. The kidneys are unremarkable with probab le cysts noted about the inferior pole left kidney measuring up to 10 mm. There are no renal or urete ral calculi or obstructive uropathy. The ureters and urinary bladder are within normal limits. Prosta te is unremarkable. S suggestion of small bilateral fat filled inguinal hernias. Extensive calcified plaque of the abdominal aorta without aneurysm. There is no adenopathy identified. Small sliding-type hiatal hernia with mild wall thickening of the distal esophagus. Colonic diverticu losis without CT evidence of acute diverticulitis. Terminal ileum and appendix appear unremarkable. T here are multiple prominent fluid-filled loops of small bowel with air-fluid levels. Additionally, th ere are several stool-filled loops of small bowel noted about the central and lower abdomen which rick sures within the upper limits of normal at approximately 2.6 cm. Mild areas of small bowel wall thick ening with interloop edema and trace free pelvic fluid. No discrete transition point identified. Soft tissues are unremarkable. Degenerative changes of the spine. No suspicious bony lesions identified. IMPRESSION: 1. Multiple prominent fluid-filled and stool-filled loops of small bowel throughout the central and l ower abdomen are noted along with mild areas of scattered small bowel wall thickening, mild interloop edema and trace pelvic ascites. Constellation of findings is suggestive of a nonspecific enteritis w ith low-grade small bowel obstruction also within the differential. Clinical correlation and follow-u p recommended. 2. Colonic diverticulosis without acute diverticulitis. 3. Normal appendix. 4. No pneumatosis or pneumoperitoneum. 5. Small hiatal hernia. 6. Additional findings as above. Electronically signed by: Mason Morales M.D. 10/28/2018 12:57 PM
--- NOTE | 2018-10-28 14:23 | Emergency Department Note ---
Entered by Bee Hernandez acting as a scribe for Diego Her DO History of Present Illness General Chief complaint: Abdominal Pain Stated complaint: ABD AND LIVER PAIN Source: patient History of Present Illness Provider complaint: abdominal pain Onset (ago): day(s) (last night) Location: abdomen Pain Consistency: + constant Maximum Pain Intensity: 10 Quality: + other (abdominal pain) Associated symptoms: + other (nausea, vomiting. Denies: diarrhea, cough, runny nose.) The patient is a 63 year old male who presents to the Emergency Room with complaints of constant abdominal pain beginning last night. He notes the pain is in the left lower quadrant as well as diffusely across his abdomen. The patient reports nausea and states he has vomited 15 to 20 times in the last day. He states his last bowel movement was last night. The patient denies diarrhea, cough, or runny nose. He reports history of fatty liver and hepatitis C. The patient denies history of abdominal surgery. He denies recent sick contacts or travel. Home Medications Home Medications Medication Instructions Recorded Confirmed Type lorazepam 0.5 mg PO QAM 04/14/18 10/28/18 History lorazepam 0.5 mg PO QDL 04/14/18 10/28/18 History lorazepam 1 mg PO HS 04/14/18 10/28/18 History methylphenidate HCl 10 mg PO QAM 04/14/18 10/28/18 History olanzapine 5 mg PO QAM 04/14/18 10/28/18 History omeprazole 20 mg PO QAM 04/14/18 10/28/18 History zolpidem 10 mg PO HS 04/14/18 10/28/18 History albuterol sulfate [Ventolin HFA] 1 puff INHALATION QID PRN 10/28/18 10/28/18 History aspirin 81 mg PO DAILY 10/28/18 10/28/18 History cyclobenzaprine 5 mg PO BID PRN 10/28/18 10/28/18 History fluticasone propionate [Flovent 2 puff INHALATION BID 10/28/18 10/28/18 History HFA] meloxicam 15 mg PO DAILY 10/28/18 10/28/18 History Allergies Allergy/AdvReac Type Severity Reaction Status Date / Time No Known Allergies Allergy Unverified 10/28/18 12:14 Past Med/Surg History Medical History Otitis media, purulent, acute, with spontaneous rupture of TM (Resolved) Neck pain (Resolved) Chest pain (Resolved 07/06/14) Syncope (Resolved) Fatty liver Hepatitis C Contusion of foot (Acute) Encounter for wound re-check (Acute) Family History Other No significant family history Social History Preferred Language: Kazakh Communication Ability: Effective Lineworker Required: No Beliefs That Will Affect Care: None Current Living Situation: Alone Other Information That Helps Us Care for You: No Feels Safe at Home: Yes Safety Concerns: Feels Safe At This Time Smoking Status: Current every day smoker Hx Alcohol Use: No Hx Substance Use: No Review of Systems See HPI for pertinent positives & negatives. and A total of 10 systems reviewed and were otherwise negative Physical Exam Vital Signs Vital Signs - 24 hr 10/28/18 11:19 10/28/18 11:50 10/28/18 12:03 Temperature 36.8 C Temperature Source Oral Sepsis Recent Fever Within 48 Hours No Sepsis New/Unexplained Change in Mental Status No Sepsis Action Taken by Nursing No Action Required Pulse Rate 106 H 95 H Pulse Rate [Right Finger] Pulse Rhythm Regular Pulse Rhythm [Right Finger] Respiratory Rate 20 18 Respiratory Effort / Characteristics Non-Labored Spontaneous Respiratory Depth Normal Blood Pressure 156/105 H Blood Pressure [Left Arm] Blood Pressure Mean 122 Blood Pressure Mean [Left Arm] Pulse Oximetry 98 98 Oxygen Delivery Method Room Air 10/28/18 12:52 10/28/18 13:54 Temperature Temperature Source Sepsis Recent Fever Within 48 Hours Sepsis New/Unexplained Change in Mental Status Sepsis Action Taken by Nursing Pulse Rate Pulse Rate [Right Finger] 93 H 84 Pulse Rhythm Pulse Rhythm [Right Finger] Regular Respiratory Rate 20 20 Respiratory Effort / Characteristics Non-Labored Spontaneous Respiratory Depth Normal Blood Pressure Blood Pressure [Left Arm] 126/82 151/61 H Blood Pressure Mean Blood Pressure Mean [Left Arm] 96 91 Pulse Oximetry 93 97 Oxygen Delivery Method Room Air Room Air GENERAL: Sitting up in bed, alert, chronically-ill appearing, well nourished, no distress, non-toxic. Disheveled. EYE EXAM: injected conjunctiva. OROPHARYNX: no exudate, no erythema, lips, buccal mucosa, and tongue normal and mucous membranes are moist NECK: supple, no nuchal rigidity, no adenopathy, non-tender LUNGS: Clear to auscultation. Normal chest wall mechanics HEART: no murmurs, S1 normal and S2 normal ABDOMEN: diffusely tender lower abdomen, soft, normo-active bowel, sounds, no masses, no rebound or guarding. BACK: Back is symmetrical on inspection and there is no deformity, no midline tenderness, no CVA tenderness. SKIN: no rashes and no bruising. Multiple tattoos. UPPER EXTREMITIES: upper extremities are grossly normal. LOWER EXTREMITIES: No pitting edema. NEURO EXAM: Normal sensorium, cranial nerves II-XII grossly intact, normal speech, no gross weakness of arms, no gross weakness of legs. Course ED COURSE: Vital signs were reviewed and showed tachycardia and hypertension. The patients medical record was reviewed The above diagnostic studies were performed and reviewed. ED treatments and interventions as stated above. 1125: The patient was evaluated in room B11B. A complete history and physical examination was performed. 1305: Upon reevaluation, the patient is sleeping. He states he is still in pain. I discussed my findings with the patient and he understands and agrees with the treatment plan. 1312: I reviewed he case with Dr. Heard, [facility] general surgery. He recommends inpatient treatment. 1315: I reviewed the patient[facility] will [facility] the patient for further management. Based on the patients age, coexisting illnesses, exam and lab findings the decision to treat as an inpatient was made. The patient remained stable while under my care. The patient will be evaluated for further management. Consultations Consultation #1: Dr. Heard, [facility] general surgery Time: 13:12 Consultation #2[facility]: [facility]15 Administered Medications Ioversol (Optiray 320 100ml) 93 ml IV ONCE PRN PRN Reason: Interaction Checking Stop: 11/01/18 12:41 Last Admin: 10/28/18 12:43 Dose: 93 ml Documented by: [id number] Discontinued Medications Sodium Chloride (Nss 1000ml) 1,000 mls @ 999 mls/hr IV .Q1H1M ONE Stop: 10/28/18 12:29 Last Admin: 10/28/18 12:01 Dose: 999 mls/hr Documented by: [id number] Morphine Sulfate (Morphine Sulfate) 4 mg IV NOW STA Stop: 10/28/18 11:30 Last Admin: 10/28/18 12:01 Dose: 4 mg Documented by: [id number] Morphine Sulfate (Morphine Sulfate) 4 mg IV NOW STA Stop: 10/28/18 13:37 Last Admin: 10/28/18 13:50 Dose: 4 mg Documented by: [id number] Ondansetron HCl (Zofran) 4 mg IV NOW STA Stop: 10/28/18 11:30 Last Admin: 10/28/18 12:01 Dose: 4 mg Documented by: [id number] Medical Decision Making Differential Diagnosis Differential diagnoses includes but is not limited to gastritis, peptic ulcer disease, GERD, gallbladder disease, pancreatitis, small bowel obstruction, acute coronary syndrome, pericarditis, ischemic bowel, irritable bowel disease, irritable bowel syndrome, appendicitis, diverticulitis, malignancy, hernia, urinary tract infection, torsion, perforation, trauma, infectious. Medical Records Attestation: I reviewed the patient's medical records. Home Medications Current Medication List: was personally reviewed by me Laboratory Data Attestation: I reviewed the patient's lab results. Result diagrams: 10/28/18 11:51 10/28/18 11:51 Lab Results 10/28/18 10/28/18 10/28/18 Range/Units 11:51 11:51 11:51 WBC 12.91 H (4.8-10.8) K/uL RBC 5.22 (4.7-6.1) M/uL Hgb 15.5 (14.0-18.0) g/dL Hct 44.1 (42-52) % MCV 84.5 (80-100) fL MCH 29.7 (25-34) pg MCHC 35.1 (32-36) g/dL RDW Std Deviation 45.8 (36.4-46.3) fL RDW Coeff of Xavier 14.7 H (11.5-14.5) % Plt Count 309 (130-400) K/uL MPV 9.5 (7.4-10.4) fL Immature Gran % (Auto) 0.4 % Neut % (Auto) 77.7 % Lymph % (Auto) 12.1 % Fleming % (Auto) 9.2 % Eos % (Auto) 0.5 % Baso % (Auto) 0.1 % Immature Gran # (Auto) 0.05 H (0.00-0.02) K/uL Neut # (Auto) 10.03 H (1.4-6.5) K/uL Lymph # (Auto) 1.56 (1.2-3.4) K/uL Fleming # (Auto) 1.19 H (0.11-0.59) K/uL Eos # (Auto) 0.07 (0-0.5) K/uL Baso # (Auto) 0.01 (0-0.2) K/uL PT 10.6 (9.0-12.0) Seconds INR 1.0 (0.9-1.1) Sodium 138 (136-145) mmol/L Potassium 3.9 (3.5-5.1) mmol/L Chloride 108 H (98-107) mmol/L Carbon Dioxide 24 (21-32) mmol/L Anion Gap 6.0 (3-11) BUN 13 (7-18) mg/dl Creatinine 0.69 (0.6-1.4) mg/dl Est Cr Clr Drug Dosing 118.1 ml/min Est GFR ( Amer) 115.5 Est GFR (Non-Af Amer) 99.6 BUN/Creatinine Ratio 18.1 (10-20) Glucose 131 H (70-99) mg/dl Calcium 8.8 (8.5-10.1) mg/dl Total Bilirubin 0.5 (0.2-1) mg/dl AST 22 (15-37) U/L ALT 37 (12-78) U/L Alkaline Phosphatase 97 (45-117) U/L Total Protein 7.2 (6.4-8.2) gm/dl Albumin 3.6 (3.4-5.0) gm/dl Globulin 3.6 (2.5-4.0) gm/dl Albumin/Globulin Ratio 1.0 (0.9-2) Lipase 54 L (73-393) U/L Urine Color Urine Appearance (Clear) Urine pH (4.5-7.5) Ur Specific Mcgregor (1.000-1.030) Urine Protein (Negative) POC Urine Protein (Negative) Urine Glucose (UA) (Negative) POC Ur Glucose (UA) (Normal) Urine Ketones (Negative) POC Urine Ketones (Negative) Urine Blood (Negative) POC Urine Blood (Negative) Urine Nitrite (Negative) POC Urine Nitrite (Negative) Urine Bilirubin (Negative) Urine Urobilinogen (Negative) Ur Leukocyte Esterase (Negative) POC U Leukocyte Esteras (Negative) 10/28/18 10/28/18 Range/Units 11:51 11:51 WBC (4.8-10.8) K/uL RBC (4.7-6.1) M/uL Hgb (14.0-18.0) g/dL Hct (42-52) % MCV (80-100) fL MCH (25-34) pg MCHC (32-36) g/dL RDW Std Deviation (36.4-46.3) fL RDW Coeff of Xavier (11.5-14.5) % Plt Count (130-400) K/uL MPV (7.4-10.4) fL Immature Gran % (Auto) % Neut % (Auto) % Lymph % (Auto) % Fleming % (Auto) % Eos % (Auto) % Baso % (Auto) % Immature Gran # (Auto) (0.00-0.02) K/uL Neut # (Auto) (1.4-6.5) K/uL Lymph # (Auto) (1.2-3.4) K/uL Fleming # (Auto) (0.11-0.59) K/uL Eos # (Auto) (0-0.5) K/uL Baso # (Auto) (0-0.2) K/uL PT (9.0-12.0) Seconds INR (0.9-1.1) Sodium (136-145) mmol/L Potassium (3.5-5.1) mmol/L Chloride (98-107) mmol/L Carbon Dioxide (21-32) mmol/L Anion Gap (3-11) BUN (7-18) mg/dl Creatinine (0.6-1.4) mg/dl Est Cr Clr Drug Dosing ml/min Est GFR ( Amer) Est GFR (Non-Af Amer) BUN/Creatinine Ratio (10-20) Glucose (70-99) mg/dl Calcium (8.5-10.1) mg/dl Total Bilirubin (0.2-1) mg/dl AST (15-37) U/L ALT (12-78) U/L Alkaline Phosphatase (45-117) U/L Total Protein (6.4-8.2) gm/dl Albumin (3.4-5.0) gm/dl Globulin (2.5-4.0) gm/dl Albumin/Globulin Ratio (0.9-2) Lipase (73-393) U/L Urine Color Yellow Urine Appearance Clear (Clear) Urine pH 5.0 (4.5-7.5) Ur Specific Mcgregor 1.026 (1.000-1.030) Urine Protein Negative (Negative) POC Urine Protein Trace H (Negative) Urine Glucose (UA) Negative (Negative) POC Ur Glucose (UA) Normal (Normal) Urine Ketones Trace H (Negative) POC Urine Ketones Negative (Negative) Urine Blood Negative (Negative) POC Urine Blood Trace H (Negative) Urine Nitrite Negative (Negative) POC Urine Nitrite Negative (Negative) Urine Bilirubin Negative (Negative) Urine Urobilinogen Negative (Negative) Ur Leukocyte Esterase Negative (Negative) POC U Leukocyte Esteras Trace H (Negative) Imaging Data Radiologist's Impression: Radiology results as stated below per my review and the radiologist's interpretation: ABDOMEN AND PELVIS CT WITH IV CONTRAST CT DOSE: 488.16 mGy.cm HISTORY: Acute generalized abdominal pain diffuse abd pain TECHNIQUE: Multiaxial CT images of the abdomen and pelvis were performed following the use of intravenous contrast. A dose lowering technique was utilized adhering to the principles of ALARA. COMPARISON STUDY: CTA of the chest 07/06/2014. FINDINGS: Mild dependent subsegmental bibasilar atelectasis. No pneumatosis or pneumoperitoneum. Imaged inferior cardiac chambers are unremarkable. Gallbladder, spleen, pancreas and adrenal glands are unremarkable. There are 2 subadjacent hypodense lesions noted about the left hepatic lobe, conglomerate measuring up to 1.7 cm which are indeterminate and statistically benign. Liver is otherwise unremarkable. The kidneys are unremarkable with probable cysts noted about the inferior pole left kidney measuring up to 10 mm. There are no renal or ureteral calculi or obstructive uropathy. The ureters and urinary bladder are within normal limits. Prostate is unremarkable. S suggestion of small bilateral fat filled inguinal hernias. Extensive calcified plaque of the abdominal aorta without aneurysm. There is no adenopathy identified. Small sliding-type hiatal hernia with mild wall thickening of the distal esophagus. Colonic diverticulosis without CT evidence of acute diverticulitis. Terminal ileum and appendix appear unremarkable. There are multiple prominent fluid-filled loops of small bowel with air-fluid levels. Additionally, there are several stool-filled loops of small bowel noted about the central and lower abdomen which measures within the upper limits of normal at approximately 2.6 cm. Mild areas of small bowel wall thickening with interloop edema and trace free pelvic fluid. No discrete transition point identified. Soft tissues are unremarkable. Degenerative changes of the spine. No suspicious bony lesions identified. IMPRESSION: 1. Multiple prominent fluid-filled and stool-filled loops of small bowel throughout the central and lower abdomen are noted along with mild areas of scattered small bowel wall thickening, mild interloop edema and trace pelvic ascites. Constellation of findings is suggestive of a nonspecific enteritis with low-grade small bowel obstruction also within the differential. Clinical corre lation and follow-up recommended. 2. Colonic diverticulosis without acute diverticulitis. 3. Normal appendix. 4. No pneumatosis or pneumoperitoneum. 5. Small hiatal hernia. 6. Additional findings as above. Electronically signed by: Mason Morales M.D. 10/28/2018 12:57 PM Blood Pressure Blood Pressure Findings: Elevated blood pressure Blood Pressure Disposition: further management by hospitalist [facility] Narrative Patient is a 63-year-old male who presents the ER for abdominal pain located in left lower quadrant associate with nausea vomiting which is been present for the past 24 hours. Last bowel movement was this morning. No diarrhea. His belly is slightly diffusely tender. Labs show a mild leukocytosis at 13,000. No significant anemia. INR was unremarkable. BMP along with LFTs bilirubin lipase is unremarkable. UA was negative. CT of the abdomen pelvis shows possible low- grade small bowel obstruction versus gastroenteritis. Discussed with [facility] [place] [facility] and they recommended admission and observation. Discussed with the hospitalist. Patient was updated bedside. Patient was given IV fluids and 2 dose of IV narcotics. Will be observed by the hospitalist. Impression & Plan SBO (small bowel obstruction) Discharge Plan Visit Data Chief Complaint: Abdominal Pain Stated Complaint: ABD AND LIVER PAIN ED Provider: Diego Her Discharge Problem: SBO (small bowel obstruction) Patient Disposition: Being Evaluated by Hospitalist Forms Stand Alone Forms: Call Back Authorization, [facility] Prescriptions Prescriptions: No Action methylphenidate HCl 10 mg tablet 10 mg PO QAM RF: 0 olanzapine 5 mg tablet 5 mg PO QAM RF: 0 omeprazole 20 mg capsule,delayed release(DR/EC) 20 mg PO QAM RF: 0 lorazepam 1 mg tablet 1 mg PO HS RF: 0 lorazepam 1 mg tablet 0.5 mg PO QDL RF: 0 lorazepam 1 mg tablet 0.5 mg PO QAM RF: 0 zolpidem 10 mg tablet 10 mg PO HS RF: 0 meloxicam 15 mg tablet 15 mg PO DAILY RF: 0 albuterol sulfate [Ventolin HFA] 90 mcg/actuation HFA aerosol inhaler 1 puff inhalation QID PRN (Reason: Shortness Of Breath Or Wheezing) RF: 0 Flovent HFA 110 mcg/actuation HFA aerosol inhaler 2 puff inhalation BID RF: 0 aspirin 81 mg Tablet,Delayed Release (Dr/Ec) 81 mg PO DAILY RF: 0 cyclobenzaprine 5 mg tablet 5 mg PO BID PRN (Reason: Muscle Spasm) RF: 0 Referrals Referrals: Katrin Dickerson MD [Primary Care Provider] - The scribe's documentation has been prepared under my direction and personally reviewed by me in its entirety. I confirm that the note above accurately reflects all work, treatment, procedures, and medical decision making performed by me.
[2018-10-28] MEDS ORDERED: CYCLOBENZAPRINE HCL 5 MG TAB PO PRN (14:53)
[2018-10-28] MEDS ORDERED: ACETAMINOPHEN 325 MG TAB PO PRN (14:53)
[2018-10-28] MEDS ORDERED: ACETAMINOPHEN 1,000 MG/100 ML VIAL IV PRN (14:53)
--- NOTE | 2018-10-28 15:30 | History & Physical Report ---
Date of Service October 28, 2018 Assessment & Plan (1) Abdominal pain: (2) Nausea and vomiting: -Admit to [facility] -Patient presenting from home with reports of abdominal pain, nausea, vomiting since last evening; in the ED, CT ABD/pelvis showing enteritis with possible low-grade SBO -NPO until evaluated by general surgery -Case discussed with Soledad Schliling PA-C -Noted patient smokes marijuana daily (has medical card for dispensary); ? Cannabis hyperemesis -Continue supportive care with IVF, PRN antiemetic, PRN IV Tylenol and Toradol -Labs unremarkable (3) Schizophrenia: -Continue olanzapine and Ritalin (4) GERD (gastroesophageal reflux disease): -Continue PPI (5) DVT prophylaxis: -SQ Lovenox History of Present Illness Chief Complaint: Abdominal pain, nausea/vomiting Primary Care Provider: Katrin Dickerson MD 63-year-old male who presents the ED with abdominal pain, nausea, vomiting. Patient reports his symptoms began last evening. He reports multiple episodes of vomiting since then. He denies hematemesis and coffee-ground emesis. He reports abdominal pain is generalized and severe, occasionally radiating into left side. He reports a bowel movement this morning which he describes as hard and small. No diarrhea. He reports episodes of chills and diaphoresis however did not take his temperature at home. No chest pain or shortness of breath. He reports some mild lightheadedness and dizziness but denies any syncopal event. He denies any urinary symptoms. In the ED, CT ABD/pelvis is showing enteritis with possible low-grade SBO. Patient was given IVF, IV Zofran, IV morphine. Allergies Allergy/AdvReac Type Severity Reaction Status Date / Time No Known Allergies Allergy Unverified 10/28/18 12:14 Home Medications Home Medications Medication Instructions Recorded Confirmed Type lorazepam 0.5 mg PO QAM 04/14/18 10/28/18 History lorazepam 0.5 mg PO QDL 04/14/18 10/28/18 History lorazepam 1 mg PO HS 04/14/18 10/28/18 History methylphenidate HCl 10 mg PO QAM 04/14/18 10/28/18 History olanzapine 5 mg PO QAM 04/14/18 10/28/18 History omeprazole 20 mg PO QAM 04/14/18 10/28/18 History zolpidem 10 mg PO HS 04/14/18 10/28/18 History albuterol sulfate [Ventolin HFA] 1 puff INHALATION QID PRN 10/28/18 10/28/18 History aspirin 81 mg PO DAILY 10/28/18 10/28/18 History cyclobenzaprine 5 mg PO BID PRN 10/28/18 10/28/18 History fluticasone propionate [Flovent 2 puff INHALATION BID 10/28/18 10/28/18 History HFA] meloxicam 15 mg PO DAILY 10/28/18 10/28/18 History Past Med/Surg History Medical History Schizophrenia (Chronic) GERD (gastroesophageal reflux disease) (Chronic) Chronic hepatitis C (Chronic) Surgical History S/P rotator cuff repair (Chronic) Family History Father Asthma Mother Dementia Social History Preferred Language: Yi Communication Ability: Effective Medical Art Therapist Required: No Beliefs That Will Affect Care: None Current Living Situation: Alone Other Information That Helps Us Care for You: No Feels Safe at Home: Yes Safety Concerns: Feels Safe At This Time Smoking Status: Current every day smoker Hx Alcohol Use: No Hx Substance Use: Yes Review of Systems ROS per HPI, all other systems reviewed and negative Physical Exam Vital Signs (Past 24 Hours): Last Vital Signs Temp 36.6 C 10/28/18 14:37 Pulse 79 10/28/18 14:37 Resp 16 10/28/18 14:37 BP 145/96 H 10/28/18 14:37 Pulse Ox 95 10/28/18 14:37 Constitutional: WD/WN, vitals as above Eyes: PERRL, conjunctivae normal, anicteric sclerae ENMT: external ear and nose normal, oropharynx normal Respiratory: normal respiratory effort, lungs clear to auscultation Cardiovascular: Rate/Rhythm: regular rate and regular rhythm Vessels: normal peripheral pulses Extremities: no edema Gastrointestinal (Abdomen): Inspection/Auscultation: + abdomen distended and normal bowel sounds Percussion/Palpation: + abdomen tender (generalized) and abdomen soft; no hepatosplenomegaly Musculoskeletal: no cyanosis or clubbing, extremities motor strength 5/5 Skin: no rashes, warm and dry Neurologic: PERRL, EOMI, accommodation nl, no face palsy, no dysarthria Psychiatric: A+Ox3, euthymic affect Results & Data Laboratory Results Laboratory Last Values WBC 12.91 K/uL (4.8-10.8) H 10/28/18 11:51 RBC 5.22 M/uL (4.7-6.1) 10/28/18 11:51 Hgb 15.5 g/dL (14.0-18.0) 10/28/18 11:51 Hct 44.1 % (42-52) 10/28/18 11:51 MCV 84.5 fL (80-100) 10/28/18 11:51 MCH 29.7 pg (25-34) 10/28/18 11:51 MCHC 35.1 g/dL (32-36) 10/28/18 11:51 RDW Std Deviation 45.8 fL (36.4-46.3) 10/28/18 11:51 RDW Coeff of Xavier 14.7 % (11.5-14.5) H 10/28/18 11:51 Plt Count 309 K/uL (130-400) 10/28/18 11:51 MPV 9.5 fL (7.4-10.4) 10/28/18 11:51 Immature Gran % (Auto) 0.4 % 10/28/18 11:51 Neut % (Auto) 77.7 % 10/28/18 11:51 Lymph % (Auto) 12.1 % 10/28/18 11:51 [place] % (Auto) 9.2 % 10/28/18 11:51 Eos % (Auto) 0.5 % 10/28/18 11:51 Baso % (Auto) 0.1 % 10/28/18 11:51 Immature Gran # (Auto) 0.05 K/uL (0.00-0.02) H 10/28/18 11:51 Neut # (Auto) 10.03 K/uL (1.4-6.5) H 10/28/18 11:51 Lymph # (Auto) 1.56 K/uL (1.2-3.4) 10/28/18 11:51 [place] # (Auto) 1.19 K/uL (0.11-0.59) H 10/28/18 11:51 Eos # (Auto) 0.07 K/uL (0-0.5) 10/28/18 11:51 Baso # (Auto) 0.01 K/uL (0-0.2) 10/28/18 11:51 PT 10.6 Seconds (9.0-12.0) 10/28/18 11:51 INR 1.0 (0.9-1.1) 10/28/18 11:51 Sodium 138 mmol/L (136-145) 10/28/18 11:51 Potassium 3.9 mmol/L (3.5-5.1) 10/28/18 11:51 Chloride 108 mmol/L (98-107) H 10/28/18 11:51 Carbon Dioxide 24 mmol/L (21-32) 10/28/18 11:51 Anion Gap 6.0 (3-11) 10/28/18 11:51 BUN 13 mg/dl (7-18) 10/28/18 11:51 Creatinine 0.69 mg/dl (0.6-1.4) 10/28/18 11:51 Est Cr Clr Drug Dosing 118.1 ml/min 10/28/18 11:51 Est GFR ( Amer) 115.5 10/28/18 11:51 Est GFR (Non-Af Amer) 99.6 10/28/18 11:51 BUN/Creatinine Ratio 18.1 (10-20) 10/28/18 11:51 Glucose 131 mg/dl (70-99) H 10/28/18 11:51 Calcium 8.8 mg/dl (8.5-10.1) 10/28/18 11:51 Total Bilirubin 0.5 mg/dl (0.2-1) 10/28/18 11:51 AST 22 U/L (15-37) 10/28/18 11:51 ALT 37 U/L (12-78) 10/28/18 11:51 Alkaline Phosphatase 97 U/L (45-117) 10/28/18 11:51 Total Protein 7.2 gm/dl (6.4-8.2) 10/28/18 11:51 Albumin 3.6 gm/dl (3.4-5.0) 10/28/18 11:51 Globulin 3.6 gm/dl (2.5-4.0) 10/28/18 11:51 Albumin/Globulin Ratio 1.0 (0.9-2) 10/28/18 11:51 Lipase 54 U/L (73-393) L 10/28/18 11:51 Urine Color Yellow 10/28/18 11:51 Urine Appearance Clear (Clear) 10/28/18 11:51 Urine pH 5.0 (4.5-7.5) 10/28/18 11:51 Ur Specific [place] 1.026 (1.000-1.030) 10/28/18 11:51 Urine Protein Negative (Negative) 10/28/18 11:51 POC Urine Protein Trace (Negative) H 10/28/18 11:51 Urine Glucose (UA) Negative (Negative) 10/28/18 11:51 POC Ur Glucose (UA) Normal (Normal) 10/28/18 11:51 Urine Ketones Trace (Negative) H 10/28/18 11:51 POC Urine Ketones Negative (Negative) 10/28/18 11:51 Urine Blood Negative (Negative) 10/28/18 11:51 POC Urine Blood Trace (Negative) H 10/28/18 11:51 Urine Nitrite Negative (Negative) 10/28/18 11:51 POC Urine Nitrite Negative (Negative) 10/28/18 11:51 Urine Bilirubin Negative (Negative) 10/28/18 11:51 Urine Urobilinogen Negative (Negative) 10/28/18 11:51 Ur Leukocyte Esterase Negative (Negative) 10/28/18 11:51 POC U Leukocyte Esteras Trace (Negative) H 10/28/18 11:51 Diagnostic Findings ABD/PELVIS CT IMPRESSION: 1. Multiple prominent fluid-filled and stool-filled loops of small bowel throughout the central and lower abdomen are noted along with mild areas of scattered small bowel wall thickening, mild interloop edema and trace pelvic ascites. Constellation of findings is suggestive of a nonspecific enteritis with low-grade small bowel obstruction also within the differential. Clinical correlation and follow-up recommended. 2. Colonic diverticulosis without acute diverticulitis. 3. Normal appendix. 4. No pneumatosis or pneumoperitoneum. 5. Small hiatal hernia. 6. Additional findings as above. Code Status & VTE Plan VTE Prophylaxis Plan VTE Prophylaxis will be ordered: Yes Supervising Physician Co-Signing Physician Notes HISTORY: Record reviewed. Patient interviewed and examined. Care coordinated with BELLA Arriaga. Please refer to her documentation for patient's history. Briefly, 63-year-old male with history of hepatitis C who presented to ED with abdominal pain, nausea, vomiting. No hematemesis, melena, hematochezia. EXAM: General- appears to be uncomfortable Lungs- clear to auscultation; no respiratory distress Cardiovascular- RRR; no murmur; no gallop; no JVD; no pretibial edema Abdomen-quiet bowel sounds, slightly distended, diffuse moderate tenderness without rebound or guarding Extremities- no cyanosis; no calf tenderness Neuro- alert, oriented Skin- warm & dry DATA: Hemoglobin 15.5, white count 12,910, platelet count 309,000. Chemistry profile and lipase are unremarkable. CT of abdomen and pelvis demonstrated fluid-filled loops of small bowel as well as small bowel wall thickening and trace pelvic ascites suggesting enteritis and possible partial small bowel obstruction. Appendix appeared to be normal. Colonic diverticulosis without diverticulitis noted. No free air. ASSESSMENT AND PLAN: Abdominal pain with CT findings as noted. Initial management will consist of bowel rest, IV fluids, analgesics, antiemetics. General Surgery consulted. Please refer to YOLI Suárez's documentation for discussion of other issues.
[2018-10-28] MEDS: KETOROLAC TROMETHAMINE 15 MG/ML VIAL IV PRN ×2 (15:49→23:58)
[2018-10-28] MEDS: SODIUM CHLORIDE 0.9% 1000ML 1,000 ML IV SCH ×2 (15:50→23:57)
[2018-10-28] MEDS ORDERED: ONDANSETRON INJ 2 MG/ML 2 ML VIAL IV PRN (18:00)
--- NOTE | 2018-10-28 18:40 | Surgery Consultation ---
Date of Consultation October 28, 2018 Assessment & Plan (1) Nausea and vomiting: pt is a 63 year- old male who presents to Er with one day history abdominal pain with nausea and vomiting, IMP: GI infection? possible SBO Plan, please consult GI doctor for further Dx and treatment, no surgical indication now, repeat labs ib am, will F/U (2) Abdominal pain: History of Present Illness Attending Physician: Dominic Tinsley DO Chief Complaint: Abdominal pain, nausea/vomiting 63-year-old male who presents the ED with abdominal pain, nausea, vomiting. Patient reports his symptoms began last evening. He reports multiple episodes of vomiting since then. He denies hematemesis and coffee-ground emesis. He reports abdominal pain is generalized and severe, occasionally radiating into left side. He reports a bowel movement this morning which he describes as hard and small. No diarrhea. He reports episodes of chills and diaphoresis however did not take his temperature at home. No chest pain or shortness of breath. He reports some mild lightheadedness and dizziness but denies any syncopal event. He denies any urinary symptoms. In the ED, CT ABD/pelvis is showing enteritis with possible low-grade SBO. Patient was given IVF, IV Zofran, IV morphine. I ( DR. Heard) reviewed pt's H/P with pt, now pt feels better, less abdominal pain, the pain is most at LUQ, no nausea and vomiting since admitted to [facility]. Allergies Allergy/AdvReac Type Severity Reaction Status Date / Time No Known Allergies Allergy Unverified 10/28/18 12:14 Home Medications Home Medications Medication Instructions Recorded Confirmed Type lorazepam 0.5 mg PO QAM 04/14/18 10/28/18 History lorazepam 0.5 mg PO QDL 04/14/18 10/28/18 History lorazepam 1 mg PO HS 04/14/18 10/28/18 History methylphenidate HCl 10 mg PO QAM 04/14/18 10/28/18 History olanzapine 5 mg PO QAM 04/14/18 10/28/18 History omeprazole 20 mg PO QAM 04/14/18 10/28/18 History zolpidem 10 mg PO HS 04/14/18 10/28/18 History albuterol sulfate [Ventolin HFA] 1 puff INHALATION QID PRN 10/28/18 10/28/18 History aspirin 81 mg PO DAILY 10/28/18 10/28/18 History cyclobenzaprine 5 mg PO BID PRN 10/28/18 10/28/18 History fluticasone propionate [Flovent 2 puff INHALATION BID 10/28/18 10/28/18 History HFA] meloxicam 15 mg PO DAILY 10/28/18 10/28/18 History Patient History Medical History Schizophrenia (Chronic) GERD (gastroesophageal reflux disease) (Chronic) Chronic hepatitis C (Chronic) Surgical History S/P rotator cuff repair (Chronic) Family History Father Asthma Mother Dementia Social History Preferred Language: Brazilian Communication Ability: Effective Vp Securities Required: No Beliefs That Will Affect Care: None Current Living Situation: Alone Other Information That Helps Us Care for You: No Feels Safe at Home: Yes Safety Concerns: Feels Safe At This Time Smoking Status: Current every day smoker Hx Alcohol Use: No Hx Substance Use: Yes Review of Systems Constitutional: as per Subjective / HPI Ear, Nose, Mouth, Throat: as per Subjective / HPI Respiratory: as per Subjective / HPI smoking 1 pack/day Cardiovascular: as per Subjective / HPI Gastrointestinal: as per Subjective / HPI Genitourinary (Male): as per Subjective / HPI Neurologic: as per Subjective / HPI Psychiatric: as per Subjective / HPI Endocrine: as per Subjective / HPI Hematologic / Lymphatic: as per Subjective / HPI Physical Exam Vital Signs (Past 24 Hours): Last Vital Signs Temp 36.6 C 10/28/18 14:37 Pulse 79 10/28/18 14:37 Resp 16 10/28/18 14:37 BP 145/96 H 10/28/18 14:37 Pulse Ox 95 10/28/18 14:37 Constitutional: WD/WN, vitals as above well developed and well nourished Neck: trachea midline, no thyromegaly Respiratory: normal respiratory effort, lungs clear to auscultation normal respiratory effort Cardiovascular: RRR, no murmur, no edema Rate/Rhythm: regular rate and regular rhythm Heart Sounds: normal S1 and normal S2 Gastrointestinal (Abdomen): Percussion/Palpation: + abdomen tender and abdomen soft tenderness at LUQ, no rebound pain, Musculoskeletal: no cyanosis or clubbing, extremities motor strength 5/5 Neurologic: awake Psychiatric: Orientation: alert and oriented x 3 Results & Data Laboratory Results Abnormal lab results 10/28/18 10/28/18 10/28/18 Range/Units 11:51 11:51 11:51 WBC 12.91 H (4.8-10.8) K/uL RDW Coeff of Xavier 14.7 H (11.5-14.5) % Immature Gran # (Auto) 0.05 H (0.00-0.02) K/uL Neut # (Auto) 10.03 H (1.4-6.5) K/uL [place] # (Auto) 1.19 H (0.11-0.59) K/uL Chloride 108 H (98-107) mmol/L Glucose 131 H (70-99) mg/dl Lipase 54 L (73-393) U/L POC Urine Protein (Negative) Urine Ketones Trace H (Negative) POC Urine Blood (Negative) POC U Leukocyte Esteras (Negative) 10/28/18 Range/Units 11:51 WBC (4.8-10.8) K/uL RDW Coeff of Xavier (11.5-14.5) % Immature Gran # (Auto) (0.00-0.02) K/uL Neut # (Auto) (1.4-6.5) K/uL [place] # (Auto) (0.11-0.59) K/uL Chloride (98-107) mmol/L Glucose (70-99) mg/dl Lipase (73-393) U/L POC Urine Protein Trace H (Negative) Urine Ketones (Negative) POC Urine Blood Trace H (Negative) POC U Leukocyte Esteras Trace H (Negative) Diagnostic Findings ABDOMEN AND PELVIS CT WITH IV CONTRAST CT DOSE: 488.16 mGy.cm HISTORY: Acute generalized abdominal pain diffuse abd pain TECHNIQUE: Multiaxial CT images of the abdomen and pelvis were performed following the use of intravenous contrast. A dose lowering technique was utilized adhering to the principles of ALARA. COMPARISON STUDY: CTA of the chest 07/06/2014. FINDINGS: Mild dependent subsegmental bibasilar atelectasis. No pneumatosis or pneumoperitoneum. Imaged inferior cardiac chambers are unremarkable. Gallbladder, spleen, pancreas and adrenal glands are unremarkable. There are 2 subadjacent hypodense lesions noted about the left hepatic lobe, conglomerate measuring up to 1.7 cm which are indeterminate and statistically benign. Liver is otherwise unremarkable. The kidneys are unremarkable with probable cysts noted about the inferior pole left kidney measuring up to 10 mm. There are no renal or ureteral calculi or obstructive uropathy. The ureters and urinary bladder are within normal limits. Prostate is unremarkable. S suggestion of small bilateral fat filled inguinal hernias. Extensive calcified plaque of the abdominal aorta without aneurysm. There is no adenopathy identified. Small sliding-type hiatal hernia with mild wall thickening of the distal esophagus. Colonic diverticulosis without CT evidence of acute diverticulitis. Terminal ileum and appendix appear unremarkable. There are multiple prominent fluid-filled loops of small bowel with air-fluid levels. Additionally, there are several stool-filled loops of small bowel noted about the central and lower abdomen which measures within the upper limits of normal at approximately 2.6 cm. Mild areas of small bowel wall thickening with interloop edema and trace free pelvic fluid. No discrete transition point identified. Soft tissues are unremarkable. Degenerative changes of the spine. No suspicious bony lesions identified. IMPRESSION: 1. Multiple prominent fluid-filled and stool-filled loops of small bowel throughout the central and lower abdomen are noted along with mild areas of scattered small bowel wall thickening, mild interloop edema and trace pelvic ascites. Constellation of findings is suggestive of a nonspecific enteritis with low-grade small bowel obstruction also within the differential. Clinical correla tion and follow-up recommended. 2. Colonic diverticulosis without acute diverticulitis. 3. Normal appendix. 4. No pneumatosis or pneumoperitoneum. 5. Small hiatal hernia. 6. Additional findings as above.
[2018-10-28] MEDS: FLUTICASONE HFA 110MCG INHALER INH SCH (20:21)
[2018-10-28] MEDS: ENOXAPARIN INJ 40 MG/0.4 ML SYR SQ SCH (20:22)
[2018-10-28] MEDS: LORazepam 1 MG TAB PO SCH (20:27)
[2018-10-29 07:09] LABS: Hematocrit (blood only) 41.9 % (42-52); Hemoglobin 14.3 g/dL (14.0-18.0); Mean Corpuscular Hgb Conc 34.1 g/dL (32-36); Mean Corpuscular Volume 84.5 fL (80-100); Mean Platelet Volume 9.5 fL (7.4-10.4); Platelet Count 278 K/uL (130-400); RDW Coefficient of Variation 14.9 % (11.5-14.5); Red Blood Count 4.96 M/uL (4.7-6.1); White Blood Count 7.08 K/uL (4.8-10.8)
[2018-10-29 07:32] LABS: BUN Creatinine Ratio 13.9 (10-20); Calcium 8.3 mg/dl (8.5-10.1); Creatinine Clr Calc Pharmacy 123.5 ml/min; Est GFR (African American) 117.6; Est GFR (Non-African American) 101.5; Potassium 3.8 mmol/L (3.5-5.1)
[2018-10-29] MEDS: SODIUM CHLORIDE 0.9% 1000ML 1,000 ML IV SCH ×3 (07:50→23:35)
--- NOTE | 2018-10-29 08:32 | XRay Report ---
XR KUB/Abdomen 1 view CLINICAL HISTORY: f/u SBO COMPARISON STUDY: CT scan dated 10/28/2018 FINDINGS: 3 supine views the abdomen are provided for interpretation. There is no pathologic bowel di latation. There is no conventional radiographic evidence of a bowel obstruction. There are no calcifi cations suspicious for renal calculi. IMPRESSION: No evidence of pathologic bowel dilatation. Electronically signed by: Marc Martinez M.D. 10/29/2018 8:30 AM
[2018-10-29] MEDS ORDERED: LORazepam 1 MG TAB PO SCH (09:00)
[2018-10-29] MEDS: OLANZapine 5 MG TABLET PO SCH (09:03)
[2018-10-29] MEDS: FLUTICASONE HFA 110MCG INHALER INH SCH ×2 (09:03→20:53)
[2018-10-29] MEDS: PANTOprazole 40 MG TAB PO SCH (09:03)
[2018-10-29] MEDS: METHYLPHENIDATE HCL 10 MG TABLET PO SCH (09:15)
[2018-10-29] MEDS: LORazepam 0.5 MG TAB PO SCH ×2 (09:15→11:53)
--- NOTE | 2018-10-29 11:28 | Surgery Progress Note ---
Date of Service October 29, 2018 Assessment & Plan (1) Nausea and vomitin year-old male who presented to Er with one day history abdominal pain with nausea and vomiting. KUB today showing no signs of obstruction Abdominal pain resolved, no further nausea or vomiting +hungry avss Leukocytosis resolved Plan: May advance diet to clears and then as tolerated encouraged ambulating hallway continue medical management no surgical intervention Dr. Heard has seen and examined pt, agrees with above (2) Abdominal pain: Subjective feeling better no abdominal pain just mild soreness no nausea or vomiting +hungry had bowel movement this morning Physical Exam Vital Signs (Past 24 Hours): Last Vital Signs Temp 36.8 C 10/29/18 07:14 Pulse 83 10/29/18 07:14 Resp 18 10/29/18 07:14 BP 148/101 H 10/29/18 07:14 Pulse Ox 96 10/29/18 07:14 Constitutional: WD/WN, vitals as above no acute distress and not ill appearing Respiratory: normal respiratory effort; no respiratory distress Gastrointestinal (Abdomen): Inspection/Auscultation: abdomen normal to inspection; abdomen not distended Percussion/Palpation: abdomen soft; abdomen nontender, no guarding and abdomen not rigid Skin: no rashes, warm and dry Psychiatric: A+Ox3, euthymic affect Results & Data Laboratory Results 10/29/18 10/29/18 10/28/18 Range/Units 06:31 06:31 11:51 WBC 7.08 (4.8-10.8) K/uL RBC 4.96 (4.7-6.1) M/uL Hgb 14.3 (14.0-18.0) g/dL Hct 41.9 L (42-52) % MCV 84.5 (80-100) fL MCH 28.8 (25-34) pg MCHC 34.1 (32-36) g/dL RDW Std Deviation 46.0 (36.4-46.3) fL RDW Coeff of Xavier 14.9 H (11.5-14.5) % Plt Count 278 (130-400) K/uL MPV 9.5 (7.4-10.4) fL Immature Gran % (Auto) % Neut % (Auto) % Lymph % (Auto) % Acad[place] % (Auto) % Eos % (Auto) % Baso % (Auto) % Immature Gran # (Auto) (0.00-0.02) K/uL Neut # (Auto) (1.4-6.5) K/uL Lymph # (Auto) (1.2-3.4) K/uL Acadia # (Auto) (0.11-0.59) K/uL Eos # (Auto) (0-0.5) K/uL Baso # (Auto) (0-0.2) K/uL PT (9.0-12.0) Seconds INR (0.9-1.1) Sodium 140 (136-145) mmol/L Potassium 3.8 (3.5-5.1) mmol/L Chloride 110 H (98-107) mmol/L Carbon Dioxide 25 (21-32) mmol/L Anion Gap 5.0 (3-11) BUN 9 (7-18) mg/dl Creatinine 0.66 (0.6-1.4) mg/dl Est Cr Clr Drug Dosing 123.5 ml/min Est GFR ( Amer) 117.6 Est GFR (Non-Af Amer) 101.5 BUN/Creatinine Ratio 13.9 (10-20) Glucose 99 (70-99) mg/dl Calcium 8.3 L (8.5-10.1) mg/dl Total Bilirubin (0.2-1) mg/dl AST (15-37) U/L ALT (12-78) U/L Alkaline Phosphatase (45-117) U/L Total Protein (6.4-8.2) gm/dl Albumin (3.4-5.0) gm/dl Globulin (2.5-4.0) gm/dl Albumin/Globulin Ratio (0.9-2) Lipase (73-393) U/L Urine Color Urine Appearance (Clear) Urine pH (4.5-7.5) POC Urine pH Pending Ur Specific Conway (1.000-1.030) Urine Protein (Negative) POC Urine Protein Trace H (Negative) Urine Glucose (UA) (Negative) POC Ur Glucose (UA) Normal (Normal) Urine Ketones (Negative) POC Urine Ketones Negative (Negative) Urine Blood (Negative) POC Urine Blood Trace H (Negative) Urine Nitrite (Negative) POC Urine Nitrite Negative (Negative) Urine Bilirubin (Negative) POC Urine Bilirubin Pending Urine Urobilinogen (Negative) POC Urine Urobilinogen Pending Ur Leukocyte Esterase (Negative) POC U Leukocyte Esteras Trace H (Negative) 10/28/18 10/28/18 10/28/18 Range/Units 11:51 11:51 11:51 WBC (4.8-10.8) K/uL RBC (4.7-6.1) M/uL Hgb (14.0-18.0) g/dL Hct (42-52) % MCV (80-100) fL MCH (25-34) pg MCHC (32-36) g/dL RDW Std Deviation (36.4-46.3) fL RDW Coeff of Xavier (11.5-14.5) % Plt Count (130-400) K/uL MPV (7.4-10.4) fL Immature Gran % (Auto) % Neut % (Auto) % Lymph % (Auto) % Acadia % (Auto) % Eos % (Auto) % Baso % (Auto) % Immature Gran # (Auto) (0.00-0.02) K/uL Neut # (Auto) (1.4-6.5) K/uL Lymph # (Auto) (1.2-3.4) K/uL Acadia # (Auto) (0.11-0.59) K/uL Eos # (Auto) (0-0.5) K/uL Baso # (Auto) (0-0.2) K/uL PT 10.6 (9.0-12.0) Seconds INR 1.0 (0.9-1.1) Sodium 138 (136-145) mmol/L Potassium 3.9 (3.5-5.1) mmol/L Chloride 108 H (98-107) mmol/L Carbon Dioxide 24 (21-32) mmol/L Anion Gap 6.0 (3-11) BUN 13 (7-18) mg/dl Creatinine 0.69 (0.6-1.4) mg/dl Est Cr Clr Drug Dosing 118.1 ml/min Est GFR ( Amer) 115.5 Est GFR (Non-Af Amer) 99.6 BUN/Creatinine Ratio 18.1 (10-20) Glucose 131 H (70-99) mg/dl Calcium 8.8 (8.5-10.1) mg/dl Total Bilirubin 0.5 (0.2-1) mg/dl AST 22 (15-37) U/L ALT 37 (12-78) U/L Alkaline Phosphatase 97 (45-117) U/L Total Protein 7.2 (6.4-8.2) gm/dl Albumin 3.6 (3.4-5.0) gm/dl Globulin 3.6 (2.5-4.0) gm/dl Albumin/Globulin Ratio 1.0 (0.9-2) Lipase 54 L (73-393) U/L Urine Color Yellow Urine Appearance Clear (Clear) Urine pH 5.0 (4.5-7.5) POC Urine pH Ur Specific Conway 1.026 (1.000-1.030) Urine Protein Negative (Negative) POC Urine Protein (Negative) Urine Glucose (UA) Negative (Negative) POC Ur Glucose (UA) (Normal) Urine Ketones Trace H (Negative) POC Urine Ketones (Negative) Urine Blood Negative (Negative) POC Urine Blood (Negative) Urine Nitrite Negative (Negative) POC Urine Nitrite (Negative) Urine Bilirubin Negative (Negative) POC Urine Bilirubin Urine Urobilinogen Negative (Negative) POC Urine Urobilinogen Ur Leukocyte Esterase Negative (Negative) POC U Leukocyte Esteras (Negative) 10/28/18 Range/Units 11:51 WBC 12.91 H (4.8-10.8) K/uL RBC 5.22 (4.7-6.1) M/uL Hgb 15.5 (14.0-18.0) g/dL Hct 44.1 (42-52) % MCV 84.5 (80-100) fL MCH 29.7 (25-34) pg MCHC 35.1 (32-36) g/dL RDW Std Deviation 45.8 (36.4-46.3) fL RDW Coeff of Xavier 14.7 H (11.5-14.5) % Plt Count 309 (130-400) K/uL MPV 9.5 (7.4-10.4) fL Immature Gran % (Auto) 0.4 % Neut % (Auto) 77.7 % Lymph % (Auto) 12.1 % Acadia % (Auto) 9.2 % Eos % (Auto) 0.5 % Baso % (Auto) 0.1 % Immature Gran # (Auto) 0.05 H (0.00-0.02) K/uL Neut # (Auto) 10.03 H (1.4-6.5) K/uL Lymph # (Auto) 1.56 (1.2-3.4) K/uL Acadia # (Auto) 1.19 H (0.11-0.59) K/uL Eos # (Auto) 0.07 (0-0.5) K/uL Baso # (Auto) 0.01 (0-0.2) K/uL PT (9.0-12.0) Seconds INR (0.9-1.1) Sodium (136-145) mmol/L Potassium (3.5-5.1) mmol/L Chloride (98-107) mmol/L Carbon Dioxide (21-32) mmol/L Anion Gap (3-11) BUN (7-18) mg/dl Creatinine (0.6-1.4) mg/dl Est Cr Clr Drug Dosing ml/min Est GFR ( Amer) Est GFR (Non-Af Amer) BUN/Creatinine Ratio (10-20) Glucose (70-99) mg/dl Calcium (8.5-10.1) mg/dl Total Bilirubin (0.2-1) mg/dl AST (15-37) U/L ALT (12-78) U/L Alkaline Phosphatase (45-117) U/L Total Protein (6.4-8.2) gm/dl Albumin (3.4-5.0) gm/dl Globulin (2.5-4.0) gm/dl Albumin/Globulin Ratio (0.9-2) Lipase (73-393) U/L Urine Color Urine Appearance (Clear) Urine pH (4.5-7.5) POC Urine pH Ur Specific Conway (1.000-1.030) Urine Protein (Negative) POC Urine Protein (Negative) Urine Glucose (UA) (Negative) POC Ur Glucose (UA) (Normal) Urine Ketones (Negative) POC Urine Ketones (Negative) Urine Blood (Negative) POC Urine Blood (Negative) Urine Nitrite (Negative) POC Urine Nitrite (Negative) Urine Bilirubin (Negative) POC Urine Bilirubin Urine Urobilinogen (Negative) POC Urine Urobilinogen Ur Leukocyte Esterase (Negative) POC U Leukocyte Esteras (Negative) Diagnostic Findings XR KUB/Abdomen 1 view CLINICAL HISTORY: f/u SBO COMPARISON STUDY: CT scan dated 10/28/2018 FINDINGS: 3 supine views the abdomen are provided for interpretation. There is no pathologic bowel dilatation. There is no conventional radiographic evidence of a bowel obstruction. There are no calcifications suspicious for renal calculi. IMPRESSION: No evidence of pathologic bowel dilatation.
[2018-10-29] MEDS: ENOXAPARIN INJ 40 MG/0.4 ML SYR SQ SCH (18:04)
--- NOTE | 2018-10-29 19:23 | Hospitalist Progress Note ---
Date of Service October 29, 2018 Assessment & Plan (1) Abdominal pain: (2) Nausea and vomiting: CT ABD/pelvis showing enteritis with possible low-grade SBO Tolerated clear liquid diet Clinically improves Surgery on board Continue conservative management Will d/c IVF (3) Schizophrenia: -Continue olanzapine and Ritalin (4) GERD (gastroesophageal reflux disease): -Continue PPI (5) DVT prophylaxis: -SQ Lovenox Subjective Pt was seen and examined Lying in bed with no distress Pt said that he feels fine No more episode of vomiting She had a bowel movement today She tolerates clear liquid diet Denies any abdominal pain, chest pain, palpitation and SOB Physical Exam Vital Signs (Past 24 Hours): Last Vital Signs Temp 36.8 C 10/29/18 15:40 Pulse 80 10/29/18 15:40 Resp 18 10/29/18 15:40 BP 158/85 H 10/29/18 15:40 Pulse Ox 96 10/29/18 15:40 Physical Exam: General- No acute distress Head- atraumatic Eyes- PERRL, EOMI, ENT- oropharynx clear Neck- supple, no JVD Lungs- clear to auscultation Heart- regular rhythm; no murmur Abdomen- normal bowel sounds, +tender LLQ Extremities- no calf tenderness Neuro- alert, oriented x 3; PERRL, EOMI; no facial palsy; no dysarthria Skin- warm & dry
[2018-10-29] MEDS: LORazepam 1 MG TAB PO SCH (20:55)
[2018-10-30] MEDS: FLUTICASONE HFA 110MCG INHALER INH SCH (08:53)
[2018-10-30] MEDS: OLANZapine 5 MG TABLET PO SCH (08:53)
[2018-10-30] MEDS: PANTOprazole 40 MG TAB PO SCH (08:53)
[2018-10-30] MEDS: METHYLPHENIDATE HCL 10 MG TABLET PO SCH (08:56)
[2018-10-30] MEDS: LORazepam 0.5 MG TAB PO SCH ×2 (08:57→11:14)
--- NOTE | 2018-10-30 12:34 | Hospitalist Progress Note ---
Date of Service October 30, 2018 Assessment & Plan (1) Abdominal pain: (2) Nausea and vomiting: CT ABD/pelvis showing enteritis with possible low-grade SBO Repeat KUB yesterday showed no evidence of pathologic bowel dilatation. Tolerated diet had BM yesterday and today Surgery on board recommended to continue conservative management Clinically stable (3) Schizophrenia: Continue olanzapine and Ritalin (4) GERD (gastroesophageal reflux disease): Continue PPI (5) DVT prophylaxis: SQ Lovenox CODE STATUS FULL CODE Disposition Discharge home today Subjective Pt was seen and examined Lying in bed with no distress Pt said that pain improves Tolerated his diet Pt said that he had a bowel movement this morning Denies any chest pain, palpitation, dizziness and SOB Physical Exam Vital Signs (Past 24 Hours): Last Vital Signs Temp 36.5 C 10/30/18 12:12 Pulse 93 H 10/30/18 12:12 Resp 16 10/30/18 12:12 BP 122/87 10/30/18 12:12 Pulse Ox 95 10/30/18 12:12 Physical Exam: General- No acute distress Head- atraumatic Eyes- PERRL, EOMI, ENT- oropharynx clear Neck- supple, no JVD Lungs- clear to auscultation Heart- regular rhythm; no murmur Abdomen- normal bowel sounds, +tender LLQ Extremities- no calf tenderness Neuro- alert, oriented x 3; PERRL, EOMI; no facial palsy; no dysarthria Skin- warm & dry
--- NOTE | 2018-10-30 12:53 | Surgery Progress Note ---
Date of Service October 30, 2018 Assessment & Plan (1) Nausea and vomitin year-old male who presented to Er with one day history abdominal pain with nausea and vomiting. KUB 10/29/2018 showing no signs of obstruction Abdominal pain resolved, no further nausea or vomiting Plan: Okay from surgical standpoint for discharge recommend advancing diet as tolerated at home but take it easy in next few days No need for surgical follow up Subjective feeling good no abdominal pain no n/v tolerated regular diet + gas and bowel movement this morning Physical Exam Vital Signs (Past 24 Hours): Last Vital Signs Temp 36.5 C 10/30/18 12:12 Pulse 93 H 10/30/18 12:12 Resp 16 10/30/18 12:12 BP 122/87 10/30/18 12:12 Pulse Ox 95 10/30/18 12:12 Constitutional: WD/WN, vitals as above no acute distress and not ill a ppearing Respiratory: normal respiratory effort; no respiratory distress Gastrointestinal (Abdomen): Inspection/Auscultation: abdomen normal to inspection; abdomen not distended Percussion/Palpation: abdomen soft; abdomen nontender, no guarding and abdomen not rigid Skin: no rashes, warm and dry Results & Data Laboratory Results 10/28/18 Range/Units 11:51 POC Urine pH Not Reportable POC Urine Bilirubin Not Reportable POC Urine Urobilinogen Not Reportable
--- NOTE | 2018-11-01 08:00 | Discharge Summary ---
Date of Service November 01, 2018 Admission HPI Per Admitting Provider 63-year-old male who presents the ED with abdominal pain, nausea, vomiting. Patient reports his symptoms began last evening. He reports multiple episodes of vomiting since then. He denies hematemesis and coffee-ground emesis. He reports abdominal pain is generalized and severe, occasionally radiating into left side. He reports a bowel movement this morning which he describes as hard and small. No diarrhea. He reports episodes of chills and diaphoresis however did not take his temperature at home. No chest pain or shortness of breath. He reports some mild lightheadedness and dizziness but denies any syncopal event. He denies any urinary symptoms. In the ED, CT ABD/pelvis is showing enteritis with possible low-grade SBO. Patient was given IVF, IV Zofran, IV morphine. Admission Exam Per Admitting Provider Constitutional: WD/WN, vitals as above Eyes: PERRL, conjunctivae normal, anicteric sclerae ENMT: external ear and nose normal, oropharynx normal Respiratory: normal respiratory effort, lungs clear to auscultation Cardiovascular: Rate/Rhythm: regular rate and regular rhythm Vessels: normal peripheral pulses Extremities: no edema Gastrointestinal Inspection/Auscultation: + abdomen distended and normal bowel sounds Percussion/Palpation: + abdomen tender (generalized) and abdomen soft; no hepatosplenomegaly Musculoskeletal: no cyanosis or clubbing, extremities motor strength 5/5 Skin: no rashes, warm and dry Neurologic: PERRL, EOMI, accommodation nl, no face palsy, no dysarthria Psychiatric: A+Ox3, euthymic affect Principal Diagnosis Abdominal Pain Nausea/Vomiting Discharge Exam General- No acute distress Head- atraumatic Eyes- PERRL, EOMI, ENT- oropharynx clear Neck- supple, no JVD Lungs- clear to auscultation Heart- regular rhythm; no murmur Abdomen- normal bowel sounds, +tender LLQ Extremities- no calf tenderness Neuro- alert, oriented x 3; PERRL, EOMI; no facial palsy; no dysarthria Skin- warm & dry Discharge Data Allergies Allergy/AdvReac Type Severity Reaction Status Date / Time No Known Allergies Allergy Unverified 10/28/18 12:14 Consultations 10/28/18 13:19 ED Decision to Admit Stat 10/28/18 14:53 Consult General Surgery Routine Ordered Studies 10/28/18 11:29 CT abd pelvis IV con only Stat XR KUB/Abdomen 1 view CLINICAL HISTORY: f/u SBO COMPARISON STUDY: CT scan dated 10/28/2018 FINDINGS: 3 supine views the abdomen are provided for interpretation. There is no pathologic bowel dilatation. There is no conventional radiographic evidence of a bowel obstruction. There are no calcifications suspicious for renal calculi. IMPRESSION: No evidence of pathologic bowel dilatation. Electronically signed by: Marc Martinez M.D. 10/29/2018 8:30 AM Dictated: 10/29/18828 Transcribed: 10/29/[address] WITH IV CONTRAST CT DOSE: 488.16 mGy.cm HISTORY: Acute generalized abdominal pain diffuse abd pain TECHNIQUE: Multiaxial CT images of the abdomen and pelvis were performed following the use of intravenous contrast. A dose lowering technique was utilized adhering to the principles of ALARA. COMPARISON STUDY: CTA of the chest 07/06/2014. FINDINGS: Mild dependent subsegmental bibasilar atelectasis. No pneumatosis or pneumoperitoneum. Imaged inferior cardiac chambers are unremarkable. Gallbladder, spleen, pancreas and adrenal glands are unremarkable. There are 2 subadjacent hypodense lesions noted about the left hepatic lobe, conglomerate measuring up to 1.7 cm which are indeterminate and statistically benign. Liver is otherwise unremarkable. The kidneys are unremarkable with probable cysts noted about the inferior pole left kidney measuring up to 10 mm. There are no renal or ureteral calculi or obstructive uropathy. The ureters and urinary bladder are within normal limits. Prostate is unremarkable. S suggestion of small bilateral fat filled inguinal hernias. Extensive calcified plaque of the abdominal aorta without aneurysm. There is no adenopathy identified. Small sliding-type hiatal hernia with mild wall thickening of the distal esophagus. Colonic diverticulosis without CT evidence of acute diverticulitis. Terminal ileum and appendix appear unremarkable. There are multiple prominent fluid-filled loops of small bowel with air-fluid levels. Additionally, there are several stool-filled loops of small bowel noted about the central and lower abdomen which measures within the upper limits of normal at approximately 2.6 cm. Mild areas of small bowel wall thickening with interloop edema and trace free pelvic fluid. No discrete transition point identified. Soft tissues are unremarkable. Degenerative changes of the spine. No suspicious bony lesions identified. IMPRESSION: 1. Multiple prominent fluid-filled and stool-filled loops of small bowel throughout the central and lower abdomen are noted along with mild areas of scattered small bowel wall thickening, mild interloop edema and trace pelvic ascites. Constellation of findings is suggestive of a nonspecific enteritis with low-grade small bowel obstruction also within the differential. Clinical correlation and follow-up recommended. 2. Colonic diverticulosis without acute diverticulitis. 3. Normal appendix. 4. No pneumatosis or pneumoperitoneum. 5. Small hiatal hernia. 6. Additional findings as above. Electronically signed by: Mason Morales M.D. 10/28/2018 12:57 PM Dictated: 10/28/18 1247 Transcribed: 10/28/18 1247 Hospital Course (1) Abdominal pain: (2) Nausea and vomiting: CT ABD/pelvis showing enteritis with possible low-grade SBO Repeat KUB yesterday showed no evidence of pathologic bowel dilatation. Tolerated diet had BM yesterday and today Surgery on board recommended to continue conservative management Clinically stable (3) Schizophrenia: Continue olanzapine and Ritalin (4) GERD (gastroesophageal reflux disease): Continue PPI (5) DVT prophylaxis: SQ Lovenox CODE STATUS FULL CODE Disposition Discharge home today Total Time Total Time Spent Total Time Spent (In Minutes): 35 minutes Total Time Includes: Examination of the Patient, Discharge Planning, Medication Reconciliation, Communication With Other Providers and Other Discharge Plan Discharge Items Patient Disposition: Home - Self-Care Reason For Visit: N/V ABD PAIN, POSSIBLE SBO Discharge Diagnosis: Abdominal Pain Nausea/Vomiting Discharge Goals: Decrease discomfort, Improve disease control, Improve function and Increase independence Activity: Resume your previous activity Non-emergency contact: Primary Care Provider Call non-emergency contact if: you have any medication questions, your symptoms worsen and your temperature is above 101 Follow-up/Referrals: Katrin Dickerson MD [Primary Care Provider] - Diet: Low Fiber Addtl Provider Instructions: Follow with your primary care provider Dr. Dickerson on 11/05 @ 11:05 AM Follow a soft diet for now and advanced as tolerated Prescriptions: Continued methylphenidate HCl 10 mg tablet 10 mg PO QAM RF: 0 olanzapine 5 mg tablet 5 mg PO QAM RF: 0 omeprazole 20 mg capsule,delayed release(DR/EC) 20 mg PO QAM RF: 0 lorazepam 1 mg tablet 1 mg PO HS RF: 0 lorazepam 1 mg tablet 0.5 mg PO QDL RF: 0 lorazepam 1 mg tablet 0.5 mg PO QAM RF: 0 zolpidem 10 mg tablet 10 mg PO HS RF: 0 meloxicam 15 mg tablet 15 mg PO DAILY RF: 0 albuterol sulfate [Ventolin HFA] 90 mcg/actuation HFA aerosol inhaler 1 puff inhalation QID PRN (Reason: Shortness Of Breath Or Wheezing) RF: 0 Flovent HFA 110 mcg/actuation HFA aerosol inhaler 2 puff inhalation BID RF: 0 aspirin 81 mg Tablet,Delayed Release (Dr/Ec) 81 mg PO DAILY RF: 0 cyclobenzaprine 5 mg tablet 5 mg PO BID PRN (Reason: Muscle Spasm) RF: 0 Stand-Alone Forms: Call Back Authorization, [facility] Discharge Orders: Discharge Order (Routine); Ordered 10/30/18 Ordered By: Lanny Charles Admission Data Admit Date/Time: 10/28/18 13:46 Attending Provider: Lanny Charles Admit Provider: Sebastian Mcarthur Primary Care Provider: Katrin Dickerson Other Providers: Sebastian Mcarthur ; Criss Heard ; Dominic Tinsley Service: Medical Other Interventions: Discharge Summary Assessment (RN) Last Done: 10/30/18 12:12 DC Date/Time DO NOT enter until pt leaves facility: 10/30/18 13:52
== END 2018-10-30 13:52 | disposition home or self-care (01) | DRG 392 ==
LOC: ED 11:17 → 3W 13:46 → SUATTDRO 13:46 → 3W 14:30
DX: K56.609 Unspecified intestinal obstruction, unspecified as to partial versus complete obstruction; F17.210 Nicotine dependence, cigarettes, uncomplicated; K52.9 Noninfective gastroenteritis and colitis, unspecified; K73.9 Chronic hepatitis, unspecified; F20.9 Schizophrenia, unspecified; Z79.82 Long term (current) use of aspirin; K21.9 Gastro-esophageal reflux disease without esophagitis